=== PATIENT | female | born 1935 | race Caucasian/White ===

== ENCOUNTER → 2016-07-11 | Outpatient (CLI) | payer MEDICARE, OTHER ==
[2016-07-11 12:18] LABS: CHLORIDE,CL 102 mmol/L (98-110); SODIUM,NA 141 mmol/L (136-146)
== END ==
LOC: MW.CHFP 11:27
PROVIDERS: ATTEND Student in an Organized Health Care Education/Training Program
DX: Z01.818 Encounter for other preprocedural examination (principal); I10 Essential (primary) hypertension; Z23 Encounter for immunization
CPT/HCPCS: 36415; 80048; 85025; 90670; G0009; G0463

== ENCOUNTER 2020-12-13 16:09 | Observation (INO) | payer MEDICARE, OTHER ==
--- NOTE | 2020-12-13 17:23 | PCM.EKG ---
#1 Interpretation Time: 17:22 EKG Interpretation Comments: ST depression V1 and V2. Q-wave in lead III. Nonspecific ST/T findings.
[2020-12-13] MEDS ORDERED: Ondansetron 4 MG/2 ML SDV IVPUSH ONE ×2 (17:36→19:35)
--- NOTE | 2020-12-13 17:56 | EDM.PDOC ---
<Arnold Sears - Last Filed: 12/14/20 06:51> ED HPI GENERAL MEDICAL PROBLEM - General Chief Complaint: Cardiovascular Problem Stated Complaint: DIZZINESS, VOMITTING Time Seen by Provider: 12/13/20 16:58 - History of Present Illness INITIAL COMMENTS - FREE TEXT/NARRATIVE: 8:26 PM: Signout received at [address] Atkinson. This is an 84-year-old female who has had a Covid immunizations who presents ER today initially secondary to vertigo and dizziness that started approximately 24 hours ago. Upon arrival in the ED she was also noted to have a slight droop of her left eyelid that the family is unsure of this is baseline or new. She has no other complaints of focal weakness to her upper or lower extremities, double vision, slurred speech, gait instability. Patient denies any recent fevers, shakes, chills. Patient has had nausea and vomiting x1 in the ED. Patient denies any diarrhea. Patient did have episodes of feeling cold in the ER so a temperature was repeated at around 7:30 PM and patient was noted to have a temperature of 100.5 orally with tachycardia and was noted to be hypotensive with a blood pressure of 90/60 with a MAP of 67, pulse ox dropped to 88%. Patient was placed on 2 L of O2 by nasal cannula with significant improvement of her pulse ox to 99%. Patient was given 1 L of NSS and after approximately 200 cc, her blood pressure is currently 135/70. Patient has been given acetaminophen secondary to her fever and tachycardia of 110. Patient was initially called as a stroke alert secondary symptoms but given the current findings I feel that the findings are more likely secondary to infectious source. Blood cultures have been obtained as well as lactic acid level and patient was started on Rocephin secondary to UA that showed what appears to be a UTI. Patient will be admitted to the hospital for further monitoring. Patient had a Covid test that was negative here in the ED. Patient has CT of her head including a CTA of her head and neck which were all unremarkable for any acute pathology. Patient is currently alert awake and oriented x3 talkative and appropriate. Patient has no focal neurological exam at this time. - Related Data Allergies Allergy/AdvReac Type Severity Reaction Status Date / Time codeine Allergy Cannot Verified 12/14/20 00:41 Remember Home Meds: Home Meds Latanoprost/Pf [Latanoprost 0.005% Eye Drop] 1 drop EYEBOTH BEDTIME 12/13/20 [History] Levothyroxine Sodium [Levoxyl] 75 mcg PO DAILY 12/14/20 [History] Losartan/Hydrochlorothiazide [Losartan-HCTZ 100-25 MG] 1 tab PO DAILY 12/14/20 [History] Metoprolol Succinate 50 mg PO DAILY 12/14/20 [History] atorvaSTATin [Lipitor] 20 mg PO BEDTIME 12/14/20 [History] ED ROS GENERAL - Review of Systems Review Of Systems: See Below ED EXAM, GENERAL - Physical Exam Exam: See Below Departure - Departure Time of Disposition: 20:00 Disposition: Refer to Observation Clinical Impression: Dizziness, UTI (urinary tract infection), Sepsis - Discharge Information <David Atkinson - Last Filed: 12/14/20 07:44> ED HPI GENERAL MEDICAL PROBLEM - History of Present Illness INITIAL COMMENTS - FREE TEXT/NARRATIVE: 84-year-old female presents to the emergency department complaining of dizziness and off balance and spinning. This started about 23 hours prior to arrival. Patient denies any headache. No numbness weakness in her arms or legs. Patient does state that last night she had some chills. No cough or productive sputum or Covid contacts. Several days ago patient had some dysuria but this is since resolved. Moderate symptoms worse with head moving. Past Medical History Cardiovascular History: Reports: Hypertension Endocrine/Metabolic History: Reports: Hypothyroidism Oncologic (Cancer) History: Reports: Breast - Past Surgical History GI Surgical History: Reports: Cholecystectomy Female Surgical History: Reports: Tubal Ligation Musculoskeletal Surgical History: Reports: Knee Replacement Other Musculoskeletal Surgeries/Procedures:: left knee Oncologic Surgical History: Reports: Mastectomy Social & Family History - Family History Family Medical History: No Pertinent Family History - Tobacco Use Tobacco Use Status *Q: Never Tobacco User - Recreational Drug Use Recreational Drug Use: No ED ROS GENERAL - Review of Systems Review Of Systems: Comprehensive ROS is negative, except as noted in HPI. ED EXAM, GENERAL - Physical Exam Free Text/Narrative:: CONSTITUTIONAL: well appearing in no acute distress SKIN: Warm, dry, and intact without rash HENT: Normocephalic, atraumatic, PULMONARY: clear to ausculation bilaterally. No rales, rhonchi, wheezing CARDIOVASCULAR: regular rate, No murmur, rubs, or gallops GASTROINTESTINAL: soft, nondistended, nontender NEUROLOGIC: normal speech. light touch/5/5 power equal and symmetric in upper and lower extremities without deficit. Mild right-sided horizontal fast beating nystagmus. Intermittent left eyelid droop MUSCULOSKELETAL: no gross deformities, atraumatic PSYCHIATRIC: normal mood and affect Course - Vital Signs Text/Narrative:: Differential diagnosis: CVA, peripheral vertigo, infectious pathology, other Patient presents as outlined above. Laboratory testing management and evaluation pending. TIMMY Sears 7pm Last Recorded V/S: Last Vital Signs Temp 37.0 C 12/14/20 06:40 Pulse 86 12/14/20 06:40 Resp 16 12/14/20 06:40 BP 123/45 L 12/14/20 06:40 Pulse Ox 93 L 12/14/20 06:40 - Orders/Labs/Meds Orders: Active Orders 24 hr Category Date Time Status CULTURE BLOOD [BC] Stat Lab 12/13/20 19:42 Received CULTURE BLOOD [BC] Stat Lab 12/13/20 19:53 Received CULTURE URINE [MREF] Stat Lab 12/13/20 19:31 Received Blood Culture x2 Reflex Set [OM.PC] Stat Oth 12/13/20 19:23 Ordered Peripheral IV Insertion Adult [OM.PC] Stat Oth 12/13/20 17:34 Ordered Medication Orders Acetaminophen (Acetaminophen 325 Mg Tab) 650 mg PO Q4H PRN PRN Reason: Pain (Mild 1-3)/fever Albuterol/Ipratropium (Albuterol/Ipratropium 3.0-0.5 Mg/3 Ml Neb Soln) 3 ml NEB Q4HRRT PRN PRN Reason: Shortness Of Breath/wheezing Aspirin (Aspirin 81 Mg Tab.Chew) 81 mg PO DAILY EVITA Last Admin: 12/14/20 00:22 Dose: 81 mg Documented by: RUDY Atorvastatin Calcium (Atorvastatin 20 Mg Tab) 20 mg PO DAILY EVITA Pantoprazole Sodium 40 mg/ (Sodium Chloride) 10 mls @ 300 mls/hr IV DAILY [facility] Ceftriaxone Sodium/Dextrose 1 (gm/ Premix) 50 mls @ 100 mls/hr IV Q24H [facility] Levothyroxine Sodium (Levothyroxine 75 Mcg Tab) 75 mcg PO ACBREAKFAST [facility] Ondansetron HCl (Ondansetron 4 Mg/2 Ml Sdv) 4 mg IVPUSH Q4H PRN PRN Reason: Nausea/Vomiting Latanoprost 0.005% (Eye Drop) 1 each EYEBOTH BEDTIME EVITA Labs: Laboratory Tests 12/13/20 12/13/20 12/13/20 Range/Units 17:46 17:46 17:46 WBC 10.26 (4.0-11.0) K/uL RBC 3.93 L (4.30-5.90) M/uL Hgb 11.9 L (12.0-16.0) g/dL Hct 34.9 L (36.0-46.0) % MCV 88.8 (80.0-98.0) fL MCH 30.3 (27.0-32.0) pg MCHC 34.1 (31.0-37.0) g/dL RDW Std Deviation 44.5 (28.0-62.0) fl RDW Coeff of [place] 14 (11.0-15.0) % Plt Count 194 (150-400) K/uL MPV 9.00 (7.40-12.00) fL Neut % (Auto) 85.6 H (48.0-80.0) % Lymph % (Auto) 5.7 L (16.0-40.0) % [place] % (Auto) 8.6 (0.0-15.0) % Eos % (Auto) 0.0 (0.0-7.0) % Baso % (Auto) 0.1 (0.0-1.5) % Neut # (Auto) 8.8 H (1.4-5.7) K/uL Lymph # (Auto) 0.6 (0.6-2.4) K/uL [place] # (Auto) 0.9 H (0.0-0.8) K/uL Eos # (Auto) 0.0 (0.0-0.7) K/uL Baso # (Auto) 0.0 (0.0-0.1) K/uL Nucleated RBC % 0.0 /100WBC Nucleated RBCs # 0 K/uL INR Sodium 136 (136-145) mmol/L Potassium 3.6 (3.5-5.1) mmol/L Chloride 98 (98-107) mmol/L Carbon Dioxide 30.3 (21.0-32.0) mmol/L BUN 19 H (7.0-18.0) mg/dL Creatinine 1.0 (0.6-1.0) mg/dL Est Cr Clr Drug Dosing 37.01 mL/min Estimated GFR (MDRD) 52.7 ml/min Glucose 134 H (74-106) mg/dL POC Glucose (70-99) mg/dL Lactic Acid (0.4-2.0) mmol/L Calcium 9.0 (8.5-10.1) mg/dL Total Bilirubin 1.3 H (0.2-1.0) mg/dL AST 23 (15-37) IU/L ALT 30 (14-63) IU/L Alkaline Phosphatase 62 (46-116) U/L Troponin I < 0.050 (0.000-0.056) ng/mL Total Protein 6.9 (6.4-8.2) g/dL Albumin 3.4 (3.4-5.0) g/dL Globulin 3.5 (2.6-4.0) g/dL Albumin/Globulin Ratio 1.0 (0.9-1.6) Lipase 40 L (73-393) U/L TSH, Ultra Sensitive 0.52 (0.36-3.74) uIU/mL Urine Color Urine Appearance Urine pH (5.0-8.0) Ur Specific [place] (1.001-1.035) Urine Protein (NEGATIVE) mg/dL Urine Glucose (UA) (NEGATIVE) mg/dL Urine Ketones (NEGATIVE) mg/dL Urine Occult Blood (NEGATIVE) Urine Nitrite (NEGATIVE) Urine Bilirubin (NEGATIVE) Urine Urobilinogen (<2.0) EU/dL Ur Leukocyte Esterase (NEGATIVE) Urine RBC (0-2/HPF) Urine WBC (0-5/HPF) Ur Epithelial Cells (NONE-FEW) Urine Bacteria (NEGATIVE) Urine Mucus (NONE-MOD) SARS-CoV-2 RNA (ROMMEL) (NEGATIVE) 12/13/20 12/13/20 12/13/20 Range/Units 17:46 17:47 19:16 WBC (4.0-11.0) K/uL RBC (4.30-5.90) M/uL Hgb (12.0-16.0) g/dL Hct (36.0-46.0) % MCV (80.0-98.0) fL MCH (27.0-32.0) pg MCHC (31.0-37.0) g/dL RDW Std Deviation (28.0-62.0) fl RDW Coeff of [place] (11.0-15.0) % Plt Count (150-400) K/uL MPV (7.40-12.00) fL Neut % (Auto) (48.0-80.0) % Lymph % (Auto) (16.0-40.0) % [place] % (Auto) (0.0-15.0) % Eos % (Auto) (0.0-7.0) % Baso % (Auto) (0.0-1.5) % Neut # (Auto) (1.4-5.7) K/uL Lymph # (Auto) (0.6-2.4) K/uL [place] # (Auto) (0.0-0.8) K/uL Eos # (Auto) (0.0-0.7) K/uL Baso # (Auto) (0.0-0.1) K/uL Nucleated RBC % /100WBC Nucleated RBCs # K/uL INR 1.19 Sodium (136-145) mmol/L Potassium (3.5-5.1) mmol/L Chloride (98-107) mmol/L Carbon Dioxide (21.0-32.0) mmol/L BUN (7.0-18.0) mg/dL Creatinine (0.6-1.0) mg/dL Est Cr Clr Drug Dosing mL/min Estimated GFR (MDRD) ml/min Glucose (74-106) mg/dL POC Glucose 135 H (70-99) mg/dL Lactic Acid (0.4-2.0) mmol/L Calcium (8.5-10.1) mg/dL Total Bilirubin (0.2-1.0) mg/dL AST (15-37) IU/L ALT (14-63) IU/L Alkaline Phosphatase (46-116) U/L Troponin I (0.000-0.056) ng/mL Total Protein (6.4-8.2) g/dL Albumin (3.4-5.0) g/dL Globulin (2.6-4.0) g/dL Albumin/Globulin Ratio (0.9-1.6) Lipase (73-393) U/L TSH, Ultra Sensitive (0.36-3.74) uIU/mL Urine Color Urine Appearance Urine pH (5.0-8.0) Ur Specific [place] (1.001-1.035) Urine Protein (NEGATIVE) mg/dL Urine Glucose (UA) (NEGATIVE) mg/dL Urine Ketones (NEGATIVE) mg/dL Urine Occult Blood (NEGATIVE) Urine Nitrite (NEGATIVE) Urine Bilirubin (NEGATIVE) Urine Urobilinogen (<2.0) EU/dL Ur Leukocyte Esterase (NEGATIVE) Urine RBC (0-2/HPF) Urine WBC (0-5/HPF) Ur Epithelial Cells (NONE-FEW) Urine Bacteria (NEGATIVE) Urine Mucus (NONE-MOD) SARS-CoV-2 RNA (ROMMEL) NEGATIVE (NEGATIVE) 12/13/20 12/13/20 12/13/20 Range/Units 19:31 19:42 20:52 WBC (4.0-11.0) K/uL RBC (4.30-5.90) M/uL Hgb (12.0-16.0) g/dL Hct (36.0-46.0) % MCV (80.0-98.0) fL MCH (27.0-32.0) pg MCHC (31.0-37.0) g/dL RDW Std Deviation (28.0-62.0) fl RDW Coeff of [place] (11.0-15.0) % Plt Count (150-400) K/uL MPV (7.40-12.00) fL Neut % (Auto) (48.0-80.0) % Lymph % (Auto) (16.0-40.0) % [place] % (Auto) (0.0-15.0) % Eos % (Auto) (0.0-7.0) % Baso % (Auto) (0.0-1.5) % Neut # (Auto) (1.4-5.7) K/uL Lymph # (Auto) (0.6-2.4) K/uL [place] # (Auto) (0.0-0.8) K/uL Eos # (Auto) (0.0-0.7) K/uL Baso # (Auto) (0.0-0.1) K/uL Nucleated RBC % /100WBC Nucleated RBCs # K/uL INR Sodium (136-145) mmol/L Potassium (3.5-5.1) mmol/L Chloride (98-107) mmol/L Carbon Dioxide (21.0-32.0) mmol/L BUN (7.0-18.0) mg/dL Creatinine (0.6-1.0) mg/dL Est Cr Clr Drug Dosing mL/min Estimated GFR (MDRD) ml/min Glucose (74-106) mg/dL POC Glucose (70-99) mg/dL Lactic Acid 2.5 H* (0.4-2.0) mmol/L Calcium (8.5-10.1) mg/dL Total Bilirubin (0.2-1.0) mg/dL AST (15-37) IU/L ALT (14-63) IU/L Alkaline Phosphatase (46-116) U/L Troponin I < 0.050 (0.000-0.056) ng/mL Total Protein (6.4-8.2) g/dL Albumin (3.4-5.0) g/dL Globulin (2.6-4.0) g/dL Albumin/Globulin Ratio (0.9-1.6) Lipase (73-393) U/L TSH, Ultra Sensitive (0.36-3.74) uIU/mL Urine Color YELLOW Urine Appearance SLT CLOUDY Urine pH 6.0 (5.0-8.0) Ur Specific [place] <= 1.005 (1.001-1.035) Urine Protein TRACE H (NEGATIVE) mg/dL Urine Glucose (UA) NEGATIVE (NEGATIVE) mg/dL Urine Ketones NEGATIVE (NEGATIVE) mg/dL Urine Occult Blood TRACE-INTACT H (NEGATIVE) Urine Nitrite POSITIVE H (NEGATIVE) Urine Bilirubin NEGATIVE (NEGATIVE) Urine Urobilinogen 0.2 (<2.0) EU/dL Ur Leukocyte Esterase TRACE H (NEGATIVE) Urine RBC 1-3 (0-2/HPF) Urine WBC 4-6 (0-5/HPF) Ur Epithelial Cells FEW (NONE-FEW) Urine Bacteria 1+ H (NEGATIVE) Urine Mucus LIGHT (NONE-MOD) SARS-CoV-2 RNA (ROMMEL) (NEGATIVE) Meds: Medications Generic Name Dose Route Start Last Admin Trade Name Freq PRN Reason Stop Dose Admin Acetaminophen 650 mg 12/13/20 22:23 Acetaminophen 325 Mg Tab PO Q4H PRN Pain (Mild 1-3)/fever Albuterol/Ipratropium 3 ml 12/13/20 22:23 Albuterol/Ipratropium 3.0-0.5 Mg/3 Ml Neb Soln NEB Q4HRRT PRN Shortness Of Breath/wheezing Aspirin 81 mg 12/13/20 23:45 12/14/20 00:22 Aspirin 81 Mg Tab.Chew PO 81 mg DAILY EVITA Administration Atorvastatin Calcium 20 mg 12/14/20 09:00 Atorvastatin 20 Mg Tab PO DAILY [facility]ITA Pantoprazole Sodium 40 mg/ 10 mls @ 300 mls/hr 12/14/20 09:00 Sodium Chloride IV DAILY [facility] Ceftriaxone Sodium/Dextrose 1 50 mls @ 100 mls/hr 12/14/20 09:00 gm/ Premix IV Q24H [facility] Levothyroxine Sodium 75 mcg 12/14/20 07:45 Levothyroxine 75 Mcg Tab PO ACBREAKFAST [facility] Ondansetron HCl 4 mg 12/13/20 22:23 Ondansetron 4 Mg/2 Ml Sdv IVPUSH Q4H PRN Nausea/Vomiting Latanoprost 0.005% 1 each 12/14/20 21:00 Eye Drop EYEBOTH BEDTIME EVITA Discontinued Medications Generic Name Dose Route Start Last Admin Trade Name Freq PRN Reason Stop Dose Admin Acetaminophen 1,000 mg 12/13/20 19:14 12/13/20 19:23 Acetaminophen 500 Mg Tab PO 12/13/20 19:15 1,000 mg ONETIME ONE Administration Sodium Chloride 1,000 mls @ 999 mls/hr 12/13/20 19:21 12/13/20 19:26 Normal Saline IV 12/13/20 20:21 999 mls/hr STAT ONE Administration Sodium Chloride 1,000 mls @ 999 mls/hr 12/13/20 19:22 12/13/20 21:46 Normal Saline IV 12/13/20 20:22 999 mls/hr .Bolus ONE Administration Ceftriaxone Sodium/Dextrose 1 50 mls @ 100 mls/hr 12/13/20 20:00 12/13/20 21:45 gm/ Premix IV 12/13/20 20:29 100 mls/hr ONETIME ONE Administration Lactated Ringer's 1,000 mls @ 125 mls/hr 12/13/20 22:23 12/14/20 00:20 Ringers, Lactated IV 12/14/20 06:22 125 mls/hr ONETIME ONE Administration Iopamidol 100 ml 12/13/20 18:25 12/13/20 18:25 Iopamidol 755 Mg/Ml 500 Ml Multipack Bottle IVPUSH 12/13/20 18:26 100 ml ONETIME STA Administration Ondansetron HCl 4 mg 12/13/20 17:36 12/13/20 17:49 Ondansetron 4 Mg/2 Ml Sdv IVPUSH 12/13/20 17:37 4 mg ONETIME ONE Administration Ondansetron HCl 4 mg 12/13/20 19:35 12/13/20 19:38 Ondansetron 4 Mg/2 Ml Sdv IVPUSH 12/13/20 19:36 4 mg ONETIME ONE Administration Ondansetron HCl Confirm 12/13/20 19:35 12/13/20 19:46 Ondansetron 4 Mg/2 Ml Sdv Administered 12/13/20 19:36 Not Given Dose 4 mg .ROUTE .STK-MED ONE Sepsis Event Note (ED) - Evaluation Sepsis Screening Result: No Definite Risk
[2020-12-13 18:14] LABS: BLOOD UREA NITROGEN,BUN 19 mg/dL (7.0-18.0); CARBON DIOXIDE,CO2 30.3 mmol/L (21.0-32.0); CHLORIDE,CL 98 mmol/L (98-107); GLUCOSE RANDOM 134 mg/dL (74-106); LIPASE 40 U/L (73-393); POTASSIUM,K 3.6 mmol/L (3.5-5.1); SODIUM,NA 136 mmol/L (136-145)
[2020-12-13] MEDS ORDERED: Iopamidol 755 MG/ML 500 ML Multipack Bottle IVPUSH STA (18:25)
--- NOTE | 2020-12-13 18:38 | CT ---
INDICATION: vertigo, left lower eyelid droop TECHNIQUE: CT Head without i.v. contrast. Coronal and sagittal reformats were obtained. COMPARISON: None FINDINGS: CSF space: Unremarkable for age. Brain: No evidence of mass, acute infarction or hemorrhage is seen. No mass-effect or midline shift is seen. Mild diffuse cortical atrophy is noted. Moderate patchy regions of low attenuation are present in the periventricular white matter, likely due to chronic microvascular ischemic changes. The brain parenchyma is otherwise normal in appearance with preservation of the granda-white matter junction. Calvarium: The visualized paranasal sinuses are well aerated. The mastoid air cells are clear. The visualized orbits are grossly unremarkable. The patient is status post prior bilateral cataract removal. The calvarium is unremarkable in appearance with no fractures identified. IMPRESSION: 1. No evidence of acute infarction, intracranial hemorrhage, or mass-effect seen. The findings were discussed with Dr. Jarrett at 6:36 PM. Please note that all CT scans at this facility use dose modulation, iterative reconstruction, and/or weight-based dosing when appropriate to reduce radiation dose to as low as reasonably achievable. Dictated by: Deondre Bullock MD @ 12/13/2020 18:36:18 (Electronically Signed)
--- NOTE | 2020-12-13 18:47 | CR ---
INDICATION: Left lower eyelid droop and vertigo TECHNIQUE: Chest radiograph 1 view COMPARISON: 09/01/2017 FINDINGS: Mediastinum: Portions of the mediastinum and right cardiac border are obscured by multiple metallic brassiere clips. The mediastinum is normal in appearance. The heart silhouette is normal in size and morphology. Lung: Small lung volumes are present with mild bibasilar subsegmental atelectasis and vascular crowding noted. No sign of pleural effusion seen. No pneumothorax is identified. Bone and Soft tissue: Bilateral suture anchors seen within the humeral heads. IMPRESSION: 1. Small lung volumes are present with mild bibasilar subsegmental atelectasis and vascular crowding noted. Dictated by Deondre Bullock MD @ 12/13/2020 6:46:04 PM Dictated by: Deondre Bullock MD @ 12/13/2020 18:46:09 (Electronically Signed)
--- NOTE | 2020-12-13 19:10 | CT ---
DATE: 12/13/2020 CLINICAL HISTORY: Patient with focal neurological deficits. TECHNIQUE: Standard helical CT image acquisition through the head and neck was performed after intravenous contrast bolus enhancement. Multiplanar reconstructed images were performed and interpreted. COMPARISON: CT same day FINDINGS: The origins of the great vessels from the aortic arch are patent. The origin of the right vertebral artery is patent. The origin of the left vertebral artery is patent. The common carotid arteries are patent There is a severe (70%) stenosis at the origin of the right internal carotid artery by NASCET criteria. This is caused by calcified plaque with a 1.5mm residual lumen. There is a mild (<50%) stenosis at the origin of the left internal carotid artery by NASCET criteria. This is caused by calcified plaque with a <2mm residual lumen. The rest of the cervical segments of the internal carotid arteries are patent up to their intracranial segments. The intracranial segments of the internal carotid arteries are patent. The left vertebral artery is dominant. The cervical segments of the vertebral arteries are patent. The intracranial segments of the vertebral arteries demonstrate mild intracranial atherosclerosis. The middle cerebral arteries are normal without aneurysm or proximal occlusion identified. The anterior cerebral arteries are normal without aneurysm or proximal occlusion identified. The anterior communicating artery is well visualized and appears normal. The basilar artery is normal without aneurysm or occlusion. The posterior cerebral arteries are normal without aneurysm or proximal occlusion. There is normal opacification of major intracranial venous structures. The visualized lung apices are unremarkable The thyroid gland is unremarkable. The soft tissues of the neck are unremarkable. There are degenerative changes in the cervical spine. IMPRESSION: 1. No proximal intracranial large vessel occlusion. 2. Severe (70%) stenosis at the origin of the right internal carotid artery by NASCET criteria caused by calcified plaque with a 1.5mm residual lumen. 3. Mild (<50%) stenosis at the origin of the left internal carotid artery by NASCET criteria caused by calcified plaque with a <2mm residual lumen. Please note that all CT scans at this facility use dose modulation, iterative reconstruction, and/or weight-based dosing when appropriate to reduce radiation dose to as low as reasonably achievable. Dictated by Leatha Crawford MD @ 12/13/2020 11:20:[address] Leatha Crawford @ Dec 13 2020 11:20PM
[2020-12-13] MEDS ORDERED: Acetaminophen 500 MG Tab PO ONE (19:14)
--- NOTE | 2020-12-13 19:20 | EDM.PDOC ---
ED HPI GENERAL MEDICAL PROBLEM - General Chief Complaint: Cardiovascular Problem Stated Complaint: DIZZINESS, VOMITTING Time Seen by Provider: 12/13/20 16:58 Source of Information: Reports: Patient History Limitations: Reports: No Limitations - History of Present Illness INITIAL COMMENTS - FREE TEXT/NARRATIVE: HISTORY AND PHYSICAL: History of present illness: Patient is an 84-year-old female who presents emergency room today with concern of dizziness/vertigo that has been making her unable to ambulate since 7 AM. Patient states that she has fallen 3 times today but has not hit her head or loss of consciousness and denies any pain. Patient states prior to this morning, she has been able to get around without any difficulty on her own. Patient states that when she goes to sit up or stand up, she feels so dizzy and like she is falling over and off balance still cannot walk. Patient states the dizziness has made her nauseous and vomit a few times today. Patient states she came to the emergency room today in a wheelchair. Patient states that she was cold last night but denies any fever. Patient states that she did have chills last night but did not think much of it today. Patient denies any other symptoms or concerns. Patient denies fever, chest pain, shortness of breath, or cough. Denies headache, neck stiff ness, change in vision, syncope, or near syncope. Denies abdominal pain, diarrhea, constipation, or dysuria. Has not noted any blood in urine or stool. Patient has been eating and drinking appropriately. Review of systems: As per history of present illness and below otherwise all systems reviewed and negative. Past medical history: As per history of present illness and as reviewed below otherwise noncontributory. Surgical history: As per history of present illness and as reviewed below otherwise noncontributory. Social history: See social history for further information Family history: As per history of present illness and as reviewed below otherwise noncontributory. Physical exam: General: Patient is alert, oriented, and in no acute distress. Patient laying comfortably on exam table. Vitals stable and reviewed by me. HEENT: Atraumatic, normocephalic, pupils equal and reactive bilaterally, negative for conjunctival pallor or scleral icterus, mucous membranes moist, TMs normal bilaterally, throat clear, neck supple, nontender, trachea midline. No drooling or trismus noted. No meningeal signs. No hot potato voice noted. Lungs: Clear to auscultation, breath sounds equal bilaterally, chest nontender. Heart: S1S2, regular rate and rhythm without overt murmur Abdomen: Soft, nondistended, nontender. Negative for masses or hepatosplenomegaly. Negative for costovertebral tenderness. Pelvis: Stable nontender. Genitourinary: Deferred. Rectal: Deferred. Skin: Intact, warm, dry. No lesions or rashes noted. Extremities: Atraumatic, negative for cords or calf pain. Neurovascular unremarkable. Neuro: Awake, alert, oriented. There is a mild lid lag of the left eyelid. 5 out of 5 strength of bilateral upper and lower extremities. When asked to sit on the side of the bed, patient does become dizzy and requires assistance to sit up. Patient is unable to stand without assistance without getting dizzy and starting to fall over. Notes: Patient is an 84-year-old female who presents emergency room today with concern of dizziness since 7 AM making it difficult to ambulate with 3 falls occurring today. Upon arrival to the ED, patient is vitally stable and well-appearing laying comfortably on exam table. However, when asked to sit up on the edge of the bed or get up and stand, patient is unable to do this without dizziness and falling over and requiring assistance to prevent falls. Given patient's presentation in the emergency room, stroke protocol initiated. Patient was initially triaged to the waiting room. Due to stroke protocol initiated, transfer of care made to Dr. Atkinson. See his further dictation for patient treatment and disposition. Diagnostics: EKG, CBC, CMP, UA, CXR, Trop, TSH, Head CT w/o cont Therapeutics: Zofran, Saline Lock Prescription: Impression: Dizziness Plan: Transfer of care to Dr. Atkinson due to stroke protocol Definitive disposition and diagnosis as appropriate pending reevaluation and review of above. - Related Data Allergies Allergy/AdvReac Type Severity Reaction Status Date / Time codeine Allergy Cannot Verified 12/13/20 17:04 Remember Home Meds: Home Meds Hydrochlorothiazide/Losartan [Hyzaar 100-25 MG] tab PO DAILY 12/13/20 [History] Latanoprost/Pf [Latanoprost 0.005% Eye Drop] 1 drop EYEBOTH BEDTIME 12/13/20 [History] Levothyroxine [Synthroid] 1 tab PO DAILY 12/13/20 [History] Metoprolol Tartrate 1 tab PO DAILY 12/13/20 [History] atorvaSTATin Calcium [Lipitor] 20 mg PO DAILY 12/13/20 [History] Past Medical History Cardiovascular History: Reports: Hypertension Endocrine/Metabolic History: Reports: Hypothyroidism Oncologic (Cancer) History: Reports: Breast - Past Surgical History GI Surgical History: Reports: Cholecystectomy Female Surgical History: Reports: Tubal Ligation Musculoskeletal Surgical History: Reports: Knee Replacement Other Musculoskeletal Surgeries/Procedures:: left knee Oncologic Surgical History: Reports: Mastectomy Social & Family History - Family History Family Medical History: No Pertinent Family History - Tobacco Use Tobacco Use Status *Q: Never Tobacco User - Recreational Drug Use Recreational Drug Use: No ED ROS GENERAL - Review of Systems Review Of Systems: Comprehensive ROS is negative, except as noted in HPI. ED EXAM, GENERAL - Physical Exam Exam: See Below (see dictation) Free Text/Narrative:: CONSTITUTIONAL: well appearing in no acute distress SKIN: Warm, dry, and intact without rash HENT: Normocephalic, atraumatic, PULMONARY: clear to ausculation bilaterally. No rales, rhonchi, wheezing CARDIOVASCULAR: regular rate, No murmur, rubs, or gallops GASTROINTESTINAL: soft, nondistended, nontender NEUROLOGIC: normal speech. light touch/5/5 power equal and symmetric in upper and lower extremities without deficit. Mild right-sided horizontal fast beating nystagmus. Intermittent left eyelid droop MUSCULOSKELETAL: no gross deformities, atraumatic PSYCHIATRIC: normal mood and affect Course - Vital Signs Last Recorded V/S: Last Vital Signs Temp 100.5 F 12/13/20 19:12 Pulse 119 H 12/13/20 19:12 Resp 17 12/13/20 19:12 BP 95/56 L 12/13/20 19:12 Pulse Ox 82 L 12/13/20 19:12 - Orders/Labs/Meds Orders: Active Orders 24 hr Category Date Time Status CORONAVIRUS COVID-19 ROMMEL [MOLEC] Stat Lab 12/13/20 17:50 Ordered UA RFX ELSA AND CULT IF INDIC [URIN] Stat Lab 12/13/20 16:58 Ordered Acetaminophen [Tylenol Extra Strength] Med 12/13/20 19:14 Once 1,000 mg PO ONETIME ONE Peripheral IV Insertion Adult [OM.PC] Stat Oth 12/13/20 17:34 Ordered Medication Orders Acetaminophen (Acetaminophen 500 Mg Tab) 1,000 mg PO ONETIME ONE Stop: 12/13/20 19:15 Labs: Laboratory Tests 12/13/20 12/13/20 12/13/20 Range/Units 17:46 17:46 17:46 WBC 10.26 (4.0-11.0) K/uL RBC 3.93 L (4.30-5.90) M/uL Hgb 11.9 L (12.0-16.0) g/dL Hct 34.9 L (36.0-46.0) % MCV 88.8 (80.0-98.0) fL MCH 30.3 (27.0-32.0) pg MCHC 34.1 (31.0-37.0) g/dL RDW Std Deviation 44.5 (28.0-62.0) fl RDW Coeff of [place]ibr[place] 14 (11.0-15.0) % Plt Count 194 (150-400) K/uL MPV 9.00 (7.40-12.00) fL Neut % (Auto) 85.6 H (48.0-80.0) % Lymph % (Auto) 5.7 L (16.0-40.0) % [place] % (Auto) 8.6 (0.0-15.0) % Eos % (Auto) 0.0 (0.0-7.0) % Baso % (Auto) 0.1 (0.0-1.5) % Neut # (Auto) 8.8 H (1.4-5.7) K/uL Lymph # (Auto) 0.6 (0.6-2.4) K/uL [place] # (Auto) 0.9 H (0.0-0.8) K/uL Eos # (Auto) 0.0 (0.0-0.7) K/uL Baso # (Auto) 0.0 (0.0-0.1) K/uL Nucleated RBC % 0.0 /100WBC Nucleated RBCs # 0 K/uL INR Sodium 136 (136-145) mmol/L Potassium 3.6 (3.5-5.1) mmol/L Chloride 98 (98-107) mmol/L Carbon Dioxide 30.3 (21.0-32.0) mmol/L BUN 19 H (7.0-18.0) mg/dL Creatinine 1.0 (0.6-1.0) mg/dL Est Cr Clr Drug Dosing 37.01 mL/min Estimated GFR (MDRD) 52.7 ml/min Glucose 134 H (74-106) mg/dL POC Glucose (70-99) mg/dL Calcium 9.0 (8.5-10.1) mg/dL Total Bilirubin 1.3 H (0.2-1.0) mg/dL AST 23 (15-37) IU/L ALT 30 (14-63) IU/L Alkaline Phosphatase 62 (46-116) U/L Troponin I < 0.050 (0.000-0.056) ng/mL Total Protein 6.9 (6.4-8.2) g/dL Albumin 3.4 (3.4-5.0) g/dL Globulin 3.5 (2.6-4.0) g/dL Albumin/Globulin Ratio 1.0 (0.9-1.6) Lipase 40 L (73-393) U/L TSH, Ultra Sensitive 0.52 (0.36-3.74) uIU/mL 12/13/20 12/13/20 Range/Units 17:46 17:47 WBC (4.0-11.0) K/uL RBC (4.30-5.90) M/uL Hgb (12.0-16.0) g/dL Hct (36.0-46.0) % MCV (80.0-98.0) fL MCH (27.0-32.0) pg MCHC (31.0-37.0) g/dL RDW Std Deviation (28.0-62.0) fl RDW Coeff of [place] (11.0-15.0) % Plt Count (150-400) K/uL MPV (7.40-12.00) fL Neut % (Auto) (48.0-80.0) % Lymph % (Auto) (16.0-40.0) % [place] % (Auto) (0.0-15.0) % Eos % (Auto) (0.0-7.0) % Baso % (Auto) (0.0-1.5) % Neut # (Auto) (1.4-5.7) K/uL Lymph # (Auto) (0.6-2.4) K/uL [place] # (Auto) (0.0-0.8) K/uL Eos # (Auto) (0.0-0.7) K/uL Baso # (Auto) (0.0-0.1) K/uL Nucleated RBC % /100WBC Nucleated RBCs # K/uL INR 1.19 Sodium (136-145) mmol/L Potassium (3.5-5.1) mmol/L Chloride (98-107) mmol/L Carbon Dioxide (21.0-32.0) mmol/L BUN (7.0-18.0) mg/dL Creatinine (0.6-1.0) mg/dL Est Cr Clr Drug Dosing mL/min Estimated GFR (MDRD) ml/min Glucose (74-106) mg/dL POC Glucose 135 H (70-99) mg/dL Calcium (8.5-10.1) mg/dL Total Bilirubin (0.2-1.0) mg/dL AST (15-37) IU/L ALT (14-63) IU/L Alkaline Phosphatase (46-116) U/L Troponin I (0.000-0.056) ng/mL Total Protein (6.4-8.2) g/dL Albumin (3.4-5.0) g/dL Globulin (2.6-4.0) g/dL Albumin/Globulin Ratio (0.9-1.6) Lipase (73-393) U/L TSH, Ultra Sensitive (0.36-3.74) uIU/mL Meds: Medications Generic Name Dose Route Start Last Admin Trade Name Freq PRN Reason Stop Dose Admin Acetaminophen 1,000 mg 12/13/20 19:14 Acetaminophen 500 Mg Tab PO 12/13/20 19:15 ONETIME ONE Discontinued Medications Generic Name Dose Route Start Last Admin Trade Name Freq PRN Reason Stop Dose Admin Iopamidol 100 ml 12/13/20 18:25 12/13/20 18:25 Iopamidol 755 Mg/Ml 500 Ml Multipack Bottle IVPUSH 12/13/20 18:26 100 ml ONETIME STA Administration Ondansetron HCl 4 mg 12/13/20 17:36 12/13/20 17:49 Ondansetron 4 Mg/2 Ml Sdv IVPUSH 12/13/20 17:37 4 mg ONETIME ONE Administration Departure - Departure Time of Disposition: 19:20 Disposition: Refer to Observation Clinical Impression: Dizziness - Discharge Information Referrals: Iliana Shen NP [Primary Care Provider] - Forms: ED Department Discharge Sepsis Event Note (ED) - Evaluation Sepsis Screening Result: No Definite Risk - Focused Exam Vital Signs: Vital Signs Temp Pulse Resp BP Pulse Ox 12/13/20 19:12 100.5 F 119 H 17 95/56 L 82 L 12/13/20 17:02 99.8 F 98 16 133/62 95 - My Orders Last 24 Hours: My Active Orders 12/13/20 16:58 UA RFX ELSA AND CULT IF INDIC [URIN] Stat 12/13/20 17:34 Peripheral IV Insertion Adult [OM.PC] Stat 12/13/20 19:14 Acetaminophen [Tylenol Extra Strength] 1,000 mg PO ONETIME ONE - Assessment/Plan Last 24 Hours: My Active Orders 12/13/20 16:58 UA RFX ELSA AND CULT IF INDIC [URIN] Stat 12/13/20 17:34 Peripheral IV Insertion Adult [OM.PC] Stat 12/13/20 19:14 Acetaminophen [Tylenol Extra Strength] 1,000 mg PO ONETIME ONE
[2020-12-13] MEDS ORDERED: Sodium Chloride 0.9% 1,000 ML IV ONE ×2 (19:21→19:22)
[2020-12-13] MEDS ORDERED: Ondansetron 4 MG/2 ML SDV ONE (19:35)
[2020-12-13] MEDS ORDERED: cefTRIAXone 1 GM in Premix Bag 1 BAG IV ONE (20:00)
[2020-12-13] MEDS ORDERED: Ondansetron 4 MG/2 ML SDV IVPUSH PRN (22:23)
[2020-12-13] MEDS ORDERED: Albuterol/Ipratropium 3.0-0.5 MG/3 ML Neb Soln NEB PRN (22:23)
[2020-12-13] MEDS ORDERED: Lactated Ringers 1,000 ML IV ONE (22:23)
--- NOTE | 2020-12-13 22:35 | PCM.HP.2 ---
H&P History of Present Illness - General Date of Service: 12/13/20 Admit Problem/Dx: Admission Diagnosis/Problem Admission Diagnosis/Problem Sepsis Source of Information: Patient, Provider History Limitations: Reports: No Limitations. Denies: Altered Mental Status, Combative/Threatening, Physical Impairment, Respiratory Distress - History of Present Illness Initial Comments - Free Text/Narative: This is an 84-year-old female who has had a Covid immunizations who presents ER today initially secondary to vertigo and dizziness that started approximately 24 hours ago, around 7 in the morning. Upon arrival in the ED she was also noted to have a slight droop of her left eyelid that the family is unsure of this is baseline or new. Patient denies any focal weakness to her upper or lower extremities, double vision, slurred speech, gait instability. Patient states that she does often feel some dizziness and off-balance when she sits up suddenly or stands up. CT of the head as well as CTA of the head and neck was done which was unremarkable for any acute finding. Patient had an episode of nausea as well as felt some chills in the ER, patient denies any diarrhea, patient's temperature rechecked again and at that time, temperature was 100.5 orally with tachycardia and was noted to be hypotensive with a blood pressure of 90/60 with a MAP of 67, pulse ox dropped to 88%. Patient was placed on 2 L of O2 by nasal cannula with significant improvement of her pulse ox to 99%. UA was positive for UTI, patient is states she has been having dysuria for 1 week, she was supposed to see her primary care doctor but states that she missed her appointment. Sepsis protocol was initiated, and patient was started on IV fluids, IV antibiotics, blood cultures and urine cultures were obtained as well. Patient was admitted to the hospital for further management. By the time I saw the patient all her symptoms have resolved including hypoxia and she states that she only feels much better. - Related Data Allergies/Adverse Reactions: Allergies Allergy/AdvReac Type Severity Reaction Status Date / Time codeine Allergy Cannot Verified 12/13/20 17:04 Remember Home Medications: Home Meds Hydrochlorothiazide/Losartan [Hyzaar 100-25 MG] tab PO DAILY 12/13/20 [History] Latanoprost/Pf [Latanoprost 0.005% Eye Drop] 1 drop EYEBOTH BEDTIME 12/13/20 [History] Levothyroxine [Synthroid] 1 tab PO DAILY 12/13/20 [History] Metoprolol Tartrate 1 tab PO DAILY 12/13/20 [History] atorvaSTATin Calcium [Lipitor] 20 mg PO DAILY 12/13/20 [History] Past Medical History Cardiovascular History: Reports: Hypertension Endocrine/Metabolic History: Reports: Hypothyroidism Oncologic (Cancer) History: Reports: Breast - Past Surgical History GI Surgical History: Reports: Cholecystectomy Female Surgical History: Reports: Tubal Ligation Musculoskeletal Surgical History: Reports: Knee Replacement Other Musculoskeletal Surgeries/Procedures:: left knee Oncologic Surgical History: Reports: Mastectomy Social & Family History - Family History Family Medical History: No Pertinent Family History - Tobacco Use Tobacco Use Status *Q: Never Tobacco User - Recreational Drug Use Recreational Drug Use: No H&P Review of Systems - Review of Systems: Review Of Systems: See Below General: Reports: Chills, Malaise, Weakness. Denies: Fever HEENT: Denies: Contact Lenses, Dysphasia Pulmonary: Denies: Shortness of Breath, Wheezing, Cough, Sputum Cardiovascular: Denies: Chest Pain, Palpitations, Dyspnea on Exertion Gastrointestinal: Denies: Abdominal Pain, Anorexia, Nausea Genitourinary: Denies: Dysuria, Frequency Musculoskeletal: Denies: Neck Pain, Shoulder Pain Skin: Denies: Cyanosis, Jaundice, Mottled Psychiatric: Denies: Confusion, Depression Neurological: Reports: Dizziness. Denies: Confusion Hematologic/Lymphatic: Denies: Anemia, Easy Bleeding Exam - Exam Exam: See Below - Vital Signs Vital Signs: Last Vital Signs Temp 38.1 C 12/13/20 19:22 Pulse 122 H 12/13/20 19:29 Resp 20 12/13/20 19:29 BP 115/63 12/13/20 19:29 Pulse Ox 93 L 12/13/20 19:29 Weight: 70.76 kg - Exam Quality Assessment: No: Supplemental Oxygen General: Alert, Oriented Neck: Supple, Trachea Midline Lungs: Clear to Auscultation, Normal Respiratory Effort Cardiovascular: Regular Rate, Regular Rhythm, Normal S1, Normal S2 GI/Abdominal Exam: Normal Bowel Sounds, Soft, Non-Tender Back Exam: Normal Inspection, Full Range of Motion Extremities: Normal Inspection, Normal Range of Motion. No: Leg Pain Skin: Warm Neurological: Cranial Nerves Intact Neuro Extensive - Mental Status: Alert, Oriented x3, Normal Mood/Affect, Normal Cognition Neuro Extensive - Motor, Sensory, Reflexes: CN II-XII Intact, Normal Gait, Normal Reflexes - Patient Data Lab Results Last 24 hrs: Laboratory Results - last 24 hr 12/13/20 12/13/20 12/13/20 Range/Units 17:46 17:46 17:46 WBC 10.26 (4.0-11.0) K/uL RBC 3.93 L (4.30-5.90) M/uL Hgb 11.9 L (12.0-16.0) g/dL Hct 34.9 L (36.0-46.0) % MCV 88.8 (80.0-98.0) fL MCH 30.3 (27.0-32.0) pg MCHC 34.1 (31.0-37.0) g/dL RDW Std Deviation 44.5 (28.0-62.0) fl RDW Coeff of [place] 14 (11.0-15.0) % Plt Count 194 (150-400) K/uL MPV 9.00 (7.40-12.00) fL Neut % (Auto) 85.6 H (48.0-80.0) % Lymph % (Auto) 5.7 L (16.0-40.0) % [place] % (Auto) 8.6 (0.0-15.0) % Eos % (Auto) 0.0 (0.0-7.0) % Baso % (Auto) 0.1 (0.0-1.5) % Neut # (Auto) 8.8 H (1.4-5.7) K/uL Lymph # (Auto) 0.6 (0.6-2.4) K/uL [place] # (Auto) 0.9 H (0.0-0.8) K/uL Eos # (Auto) 0.0 (0.0-0.7) K/uL Baso # (Auto) 0.0 (0.0-0.1) K/uL Nucleated RBC % 0.0 /100WBC Nucleated RBCs # 0 K/uL INR Sodium 136 (136-145) mmol/L Potassium 3.6 (3.5-5.1) mmol/L Chloride 98 (98-107) mmol/L Carbon Dioxide 30.3 (21.0-32.0) mmol/L BUN 19 H (7.0-18.0) mg/dL Creatinine 1.0 (0.6-1.0) mg/dL Est Cr Clr Drug Dosing 37.01 mL/min Estimated GFR (MDRD) 52.7 ml/min Glucose 134 H (74-106) mg/dL POC Glucose (70-99) mg/dL Lactic Acid (0.4-2.0) mmol/L Calcium 9.0 (8.5-10.1) mg/dL Total Bilirubin 1.3 H (0.2-1.0) mg/dL AST 23 (15-37) IU/L ALT 30 (14-63) IU/L Alkaline Phosphatase 62 (46-116) U/L Troponin I < 0.050 (0.000-0.056) ng/mL Total Protein 6.9 (6.4-8.2) g/dL Albumin 3.4 (3.4-5.0) g/dL Globulin 3.5 (2.6-4.0) g/dL Albumin/Globulin Ratio 1.0 (0.9-1.6) Lipase 40 L (73-393) U/L TSH, Ultra Sensitive 0.52 (0.36-3.74) uIU/mL Urine Color Urine Appearance Urine pH (5.0-8.0) Ur Specific [place] (1.001-1.035) Urine Protein (NEGATIVE) mg/dL Urine Glucose (UA) (NEGATIVE) mg/dL Urine Ketones (NEGATIVE) mg/dL Urine Occult Blood (NEGATIVE) Urine Nitrite (NEGATIVE) Urine Bilirubin (NEGATIVE) Urine Urobilinogen (<2.0) EU/dL Ur Leukocyte Esterase (NEGATIVE) Urine RBC (0-2/HPF) Urine WBC (0-5/HPF) Ur Epithelial Cells (NONE-FEW) Urine Bacteria (NEGATIVE) Urine Mucus (NONE-MOD) SARS-CoV-2 RNA (ROMMEL) (NEGATIVE) 12/13/20 12/13/20 12/13/20 Range/Units 17:46 17:47 19:16 WBC (4.0-11.0) K/uL RBC (4.30-5.90) M/uL Hgb (12.0-16.0) g/dL Hct (36.0-46.0) % MCV (80.0-98.0) fL MCH (27.0-32.0) pg MCHC (31.0-37.0) g/dL RDW Std Deviation (28.0-62.0) fl RDW Coeff of [place] (11.0-15.0) % Plt Count (150-400) K/uL MPV (7.40-12.00) fL Neut % (Auto) (48.0-80.0) % Lymph % (Auto) (16.0-40.0) % [place] % (Auto) (0.0-15.0) % Eos % (Auto) (0.0-7.0) % Baso % (Auto) (0.0-1.5) % Neut # (Auto) (1.4-5.7) K/uL Lymph # (Auto) (0.6-2.4) K/uL [place] # (Auto) (0.0-0.8) K/uL Eos # (Auto) (0.0-0.7) K/uL Baso # (Auto) (0.0-0.1) K/uL Nucleated RBC % /100WBC Nucleated RBCs # K/uL INR 1.19 Sodium (136-145) mmol/L Potassium (3.5-5.1) mmol/L Chloride (98-107) mmol/L Carbon Dioxide (21.0-32.0) mmol/L BUN (7.0-18.0) mg/dL Creatinine (0.6-1.0) mg/dL Est Cr Clr Drug Dosing mL/min Estimated GFR (MDRD) ml/min Glucose (74-106) mg/dL POC Glucose 135 H (70-99) mg/dL Lactic Acid (0.4-2.0) mmol/L Calcium (8.5-10.1) mg/dL Total Bilirubin (0.2-1.0) mg/dL AST (15-37) IU/L ALT (14-63) IU/L Alkaline Phosphatase (46-116) U/L Troponin I (0.000-0.056) ng/mL Total Protein (6.4-8.2) g/dL Albumin (3.4-5.0) g/dL Globulin (2.6-4.0) g/dL Albumin/Globulin Ratio (0.9-1.6) Lipase (73-393) U/L TSH, Ultra Sensitive (0.36-3.74) uIU/mL Urine Color Urine Appearance Urine pH (5.0-8.0) Ur Specific [place] (1.001-1.035) Urine Protein (NEGATIVE) mg/dL Urine Glucose (UA) (NEGATIVE) mg/dL Urine Ketones (NEGATIVE) mg/dL Urine Occult Blood (NEGATIVE) Urine Nitrite (NEGATIVE) Urine Bilirubin (NEGATIVE) Urine Urobilinogen (<2.0) EU/dL Ur Leukocyte Esterase (NEGATIVE) Urine RBC (0-2/HPF) Urine WBC (0-5/HPF) Ur Epithelial Cells (NONE-FEW) Urine Bacteria (NEGATIVE) Urine Mucus (NONE-MOD) SARS-CoV-2 RNA (ROMMEL) NEGATIVE (NEGATIVE) 12/13/20 12/13/20 12/13/20 Range/Units 19:31 19:42 20:52 WBC (4.0-11.0) K/uL RBC (4.30-5.90) M/uL Hgb (12.0-16.0) g/dL Hct (36.0-46.0) % MCV (80.0-98.0) fL MCH (27.0-32.0) pg MCHC (31.0-37.0) g/dL RDW Std Deviation (28.0-62.0) fl RDW Coeff of [place] (11.0-15.0) % Plt Count (150-400) K/uL MPV (7.40-12.00) fL Neut % (Auto) (48.0-80.0) % Lymph % (Auto) (16.0-40.0) % [place] % (Auto) (0.0-15.0) % Eos % (Auto) (0.0-7.0) % Baso % (Auto) (0.0-1.5) % Neut # (Auto) (1.4-5.7) K/uL Lymph # (Auto) (0.6-2.4) K/uL [place] # (Auto) (0.0-0.8) K/uL Eos # (Auto) (0.0-0.7) K/uL Baso # (Auto) (0.0-0.1) K/uL Nucleated RBC % /100WBC Nucleated RBCs # K/uL INR Sodium (136-145) mmol/L Potassium (3.5-5.1) mmol/L Chloride (98-107) mmol/L Carbon Dioxide (21.0-32.0) mmol/L BUN (7.0-18.0) mg/dL Creatinine (0.6-1.0) mg/dL Est Cr Clr Drug Dosing mL/min Estimated GFR (MDRD) ml/min Glucose (74-106) mg/dL POC Glucose (70-99) mg/dL Lactic Acid 2.5 H* (0.4-2.0) mmol/L Calcium (8.5-10.1) mg/dL Total Bilirubin (0.2-1.0) mg/dL AST (15-37) IU/L ALT (14-63) IU/L Alkaline Phosphatase (46-116) U/L Troponin I < 0.050 (0.000-0.056) ng/mL Total Protein (6.4-8.2) g/dL Albumin (3.4-5.0) g/dL Globulin (2.6-4.0) g/dL Albumin/Globulin Ratio (0.9-1.6) Lipase (73-393) U/L TSH, Ultra Sensitive (0.36-3.74) uIU/mL Urine Color YELLOW Urine Appearance SLT CLOUDY Urine pH 6.0 (5.0-8.0) Ur Specific [place] <= 1.005 (1.001-1.035) Urine Protein TRACE H (NEGATIVE) mg/dL Urine Glucose (UA) NEGATIVE (NEGATIVE) mg/dL Urine Ketones NEGATIVE (NEGATIVE) mg/dL Urine Occult Blood TRACE-INTACT H (NEGATIVE) Urine Nitrite POSITIVE H (NEGATIVE) Urine Bilirubin NEGATIVE (NEGATIVE) Urine Urobilinogen 0.2 (<2.0) EU/dL Ur Leukocyte Esterase TRACE H (NEGATIVE) Urine RBC 1-3 (0-2/HPF) Urine WBC 4-6 (0-5/HPF) Ur Epithelial Cells FEW (NONE-FEW) Urine Bacteria 1+ H (NEGATIVE) Urine Mucus LIGHT (NONE-MOD) SARS-CoV-2 RNA (ROMMEL) (NEGATIVE) Result Diagrams: 12/13/20 17:46 12/13/20 17:46 Sepsis Event Note - Evaluation Sepsis Screening Result: No Definite Risk - Focused Exam Vital Signs: Vital Signs Temp Pulse Resp BP Pulse Ox 12/13/20 19:29 122 H 20 115/63 93 L 12/13/20 19:22 38.1 C 12/13/20 19:12 38.1 C 119 H 17 95/56 L 82 L 12/13/20 17:02 37.7 C 98 16 133/62 95 - Problem List (1) Sepsis SNOMED Code(s): 99539085 ICD Code: A41.9 - SEPSIS, UNSPECIFIED ORGANISM Status: Acute Current Visit: Yes (2) UTI (urinary tract infection) SNOMED Code(s): 22912670 ICD Code: N39.0 - URINARY TRACT INFECTION, SITE NOT SPECIFIED Status: Acute Current Visit: Yes (3) Nausea & vomiting SNOMED Code(s): 64841198 ICD Code: R11.2 - NAUSEA WITH VOMITING, UNSPECIFIED Status: Acute Current Visit: Yes (4) Dizziness SNOMED Code(s): 675869614, 644616867 ICD Code: R42 - DIZZINESS AND GIDDINESS Status: Acute Current Visit: Yes Problem List Initiated/Reviewed/Updated: Yes Orders Last 24hrs: Active Orders 24 hr Category Date Time Status Patient Status [ADT] Routine ADT 12/13/20 21:31 Active Ambulate [RC] ASDIRECTED Care 12/13/20 22:23 Active Antiembolic Devices [RC] PER UNIT ROUTINE Care 12/13/20 22:26 Active Blood Glucose Check, Bedside [RC] BIDMEALS Care 12/13/20 22:23 Active Oxygen Therapy [RC] PRN Care 12/13/20 22:24 Active Pulse Oximetry [RC] PRN Care 12/13/20 22:24 Active RT Aerosol Therapy [RC] ASDIRECTED Care 12/13/20 22:27 Active VTE/DVT Education [RC] PER UNIT ROUTINE Care 12/13/20 22:24 Active Vital Signs [RC] Q4H Care 12/13/20 22:24 Active Consult to Physical Therapy [PT Evaluation and Cons 12/13/20 22:32 Active Treatment] [CONS] Stat Regular Diet [DIET] Diet 12/14/20 Breakfast Active BMP [BASIC METABOLIC PANEL,BMP] [CHEM] AM Lab 12/14/20 05:11 Ordered CBC WITH AUTO DIFF [HEME] AM Lab 12/14/20 05:11 Ordered CULTURE BLOOD [BC] Stat Lab 12/13/20 19:42 Received CULTURE BLOOD [BC] Stat Lab 12/13/20 19:53 Received CULTURE URINE [MREF] Stat Lab 12/13/20 19:31 Received MAGNESIUM [CHEM] AM Lab 12/14/20 05:11 Ordered PHOSPHORUS [CHEM] AM Lab 12/14/20 05:11 Ordered REFLEX LACTIC ACID YES OR NO [CHEM] Routine Lab 12/13/20 20:25 Received Acetaminophen [TylenoL] Med 12/13/20 22:23 Active 650 mg PO Q4H PRN Albuterol/Ipratropium [DuoNeb 3.0-0.5 MG/3 ML] Med 12/13/20 22:23 Active 3 ml NEB Q4HRRT PRN Lactated Ringers [Ringers, Lactated] 1,000 ml Med 12/13/20 22:23 Active IV ONETIME Latanoprost/Pf [Latanoprost 0.005% Eye Drop] Med 12/14/20 21:00 Active 1 drop EYEBOTH BEDTIME Levothyroxine [Synthroid] Med 12/14/20 09:00 Active 50 mcg PO DAILY Ondansetron [Zofran] Med 12/13/20 22:23 Active 4 mg IVPUSH Q4H PRN Pantoprazole [ProTONIX IV] 40 mg Med 12/14/20 09:00 Active Sodium Chloride 0.9% [Normal Saline] 10 ml IV DAILY atorvaSTATin [Lipitor] Med 12/14/20 09:00 Active 20 mg PO DAILY cefTRIAXone [Rocephin in Dextrose,Iso-Osm 1 GM/50 ML] 1 Med 12/14/20 09:00 Active gm Premix Bag 1 bag IV Q24H Blood Culture x2 Reflex Set [OM.PC] Stat Oth 12/13/20 19:23 Ordered Peripheral IV Insertion Adult [OM.PC] Stat Oth 12/13/20 17:34 Ordered Sequential Compression Device [OM.PC] Per Unit Routine Oth 12/13/20 22:24 Ordered Medication Orders Acetaminophen (Acetaminophen 325 Mg Tab) 650 mg PO Q4H PRN PRN Reason: Pain (Mild 1-3)/fever Albuterol/Ipratropium (Albuterol/Ipratropium 3.0-0.5 Mg/3 Ml Neb Soln) 3 ml NEB Q4HRRT PRN PRN Reason: Shortness Of Breath/wheezing Atorvastatin Calcium (Atorvastatin 20 Mg Tab) 20 mg PO DAILY EVITA Lactated Ringer's (Ringers, Lactated) 1,000 mls @ 125 mls/hr IV ONETIME ONE Stop: 12/14/20 06:22 Pantoprazole Sodium 40 mg/ (Sodium Chloride) 10 mls @ 300 mls/hr IV DAILY EVITA Ceftriaxone Sodium/Dextrose 1 (gm/ Premix) 50 mls @ 100 mls/hr IV Q24H EVITA Levothyroxine Sodium (Levothyroxine 50 Mcg Tab) 50 mcg PO DAILY EVITA Non-Formulary Medication (Latanoprost/Pf [Latanoprost 0.005% Eye Drop]) 1 drop EYEBOTH BEDTIME EVITA Ondansetron HCl (Ondansetron 4 Mg/2 Ml Sdv) 4 mg IVPUSH Q4H PRN PRN Reason: Nausea/Vomiting Assessment/Plan Comment:: 84-year-old female admitted for sepsis likely secondary to UTI, no other evident source of infection Sepsis resolved, but patient continues to have soft blood pressure in the 100s sbp, will hold off on all antihypertensives for now Continue IV Rocephin Continue IV fluids, bolus as needed Follow-up on urine cultures and blood cultures Currently off nasal cannula saturating at 92% on room air Continue oxygen as needed Pulse ox as needed Vitals every 4 hours DuoNebs as needed for shortness of breath IV Zofran for nausea and vomiting Administer 1 dose of aspirin 81 mg tonight Resume home meds as appropriate No focal neurological deficit noted on exam, will hold off on MRI for now unless patient's clinical condition changes Patient will need to be assessed by physical therapy for safe ambulation
[2020-12-14] MEDS: Aspirin 81 MG Tab.Chew PO SCH ×2 (00:22→08:16)
[2020-12-14 06:52] LABS: CARBON DIOXIDE,CO2 28.6 mmol/L (21.0-32.0); POTASSIUM,K 3.6 mmol/L (3.5-5.1)
[2020-12-14] MEDS: Levothyroxine 75 MCG Tab PO SCH (08:17)
[2020-12-14] MEDS: atorvaSTATin 20 MG Tab PO SCH (08:17)
--- NOTE | 2020-12-14 08:18 | PCM.PN ---
- General Info Date of Service: 12/14/20 Admission Dx/Problem (Free Text): Admission Diagnosis/Problem Admission Diagnosis/Problem Sepsis, UTI Subjective Update: Feeling improved today. No chest pain. No SOB. No Dizziness or lightheadedness. Reports she has been up ambulating to bathroom without issues, stand by assist with nursing. No other concerns this morning, getting up to chair to eat breakfast. Functional Status: Reports: Pain Controlled, Tolerating Diet, Ambulating - Review of Systems General: Reports: No Symptoms. Denies: Weakness, Fatigue HEENT: Reports: No Symptoms. Denies: Headaches, Visual Changes Pulmonary: Reports: No Symptoms. Denies: Shortness of Breath, Cough Cardiovascular: Reports: No Symptoms. Denies: Chest Pain Gastrointestinal: Reports: No Symptoms. Denies: Abdominal Pain Genitourinary: Reports: No Symptoms. Denies: Dysuria, Frequency Skin: Reports: No Symptoms Neurological: Reports: No Symptoms Psychiatric: Reports: No Symptoms - Patient Data Vitals - Most Recent: Last Vital Signs Temp 98.6 F 12/14/20 06:40 Pulse 86 12/14/20 06:40 Resp 16 12/14/20 06:40 BP 123/45 L 12/14/20 06:40 Pulse Ox 93 L 12/14/20 06:40 Weight - Most Recent: 73.936 kg I&O - Last 24 Hours: Intake & Output 12/13/20 12/14/20 12/14/20 22:59 06:59 14:59 Intake Total 870 Output Total 300 400 Balance -300 470 Lab Results Last 24 Hours: Laboratory Results - last 24 hr 12/13/20 12/13/20 12/13/20 Range/Units 17:46 17:46 17:46 WBC 10.26 (4.0-11.0) K/uL RBC 3.93 L (4.30-5.90) M/uL Hgb 11.9 L (12.0-16.0) g/dL Hct 34.9 L (36.0-46.0) % MCV 88.8 (80.0-98.0) fL MCH 30.3 (27.0-32.0) pg MCHC 34.1 (31.0-37.0) g/dL RDW Std Deviation 44.5 (28.0-62.0) fl RDW Coeff of Librado 14 (11.0-15.0) % Plt Count 194 (150-400) K/uL MPV 9.00 (7.40-12.00) fL Neut % (Auto) 85.6 H (48.0-80.0) % Lymph % (Auto) 5.7 L (16.0-40.0) % Sanders % (Auto) 8.6 (0.0-15.0) % Eos % (Auto) 0.0 (0.0-7.0) % Baso % (Auto) 0.1 (0.0-1.5) % Neut # (Auto) 8.8 H (1.4-5.7) K/uL Lymph # (Auto) 0.6 (0.6-2.4) K/uL Sanders # (Auto) 0.9 H (0.0-0.8) K/uL Eos # (Auto) 0.0 (0.0-0.7) K/uL Baso # (Auto) 0.0 (0.0-0.1) K/uL Nucleated RBC % 0.0 /100WBC Nucleated RBCs # 0 K/uL INR Sodium 136 (136-145) mmol/L Potassium 3.6 (3.5-5.1) mmol/L Chloride 98 (98-107) mmol/L Carbon Dioxide 30.3 (21.0-32.0) mmol/L BUN 19 H (7.0-18.0) mg/dL Creatinine 1.0 (0.6-1.0) mg/dL Est Cr Clr Drug Dosing 37.01 mL/min Estimated GFR (MDRD) 52.7 ml/min Glucose 134 H (74-106) mg/dL POC Glucose (70-99) mg/dL Lactic Acid (0.4-2.0) mmol/L Calcium 9.0 (8.5-10.1) mg/dL Phosphorus (2.6-4.7) mg/dL Magnesium (1.8-2.4) mg/dL Total Bilirubin 1.3 H (0.2-1.0) mg/dL AST 23 (15-37) IU/L ALT 30 (14-63) IU/L Alkaline Phosphatase 62 (46-116) U/L Troponin I < 0.050 (0.000-0.056) ng/mL Total Protein 6.9 (6.4-8.2) g/dL Albumin 3.4 (3.4-5.0) g/dL Globulin 3.5 (2.6-4.0) g/dL Albumin/Globulin Ratio 1.0 (0.9-1.6) Lipase 40 L (73-393) U/L TSH, Ultra Sensitive 0.52 (0.36-3.74) uIU/mL Urine Color Urine Appearance Urine pH (5.0-8.0) Ur Specific Thornton (1.001-1.035) Urine Protein (NEGATIVE) mg/dL Urine Glucose (UA) (NEGATIVE) mg/dL Urine Ketones (NEGATIVE) mg/dL Urine Occult Blood (NEGATIVE) Urine Nitrite (NEGATIVE) Urine Bilirubin (NEGATIVE) Urine Urobilinogen (<2.0) EU/dL Ur Leukocyte Esterase (NEGATIVE) Urine RBC (0-2/HPF) Urine WBC (0-5/HPF) Ur Epithelial Cells (NONE-FEW) Urine Bacteria (NEGATIVE) Urine Mucus (NONE-MOD) SARS-CoV-2 RNA (ROMMEL) (NEGATIVE) 12/13/20 12/13/20 12/13/20 Range/Units 17:46 17:47 19:16 WBC (4.0-11.0) K/uL RBC (4.30-5.90) M/uL Hgb (12.0-16.0) g/dL Hct (36.0-46.0) % MCV (80.0-98.0) fL MCH (27.0-32.0) pg MCHC (31.0-37.0) g/dL RDW Std Deviation (28.0-62.0) fl RDW Coeff of Librado (11.0-15.0) % Plt Count (150-400) K/uL MPV (7.40-12.00) fL Neut % (Auto) (48.0-80.0) % Lymph % (Auto) (16.0-40.0) % Sanders % (Auto) (0.0-15.0) % Eos % (Auto) (0.0-7.0) % Baso % (Auto) (0.0-1.5) % Neut # (Auto) (1.4-5.7) K/uL Lymph # (Auto) (0.6-2.4) K/uL Sanders # (Auto) (0.0-0.8) K/uL Eos # (Auto) (0.0-0.7) K/uL Baso # (Auto) (0.0-0.1) K/uL Nucleated RBC % /100WBC Nucleated RBCs # K/uL INR 1.19 Sodium (136-145) mmol/L Potassium (3.5-5.1) mmol/L Chloride (98-107) mmol/L Carbon Dioxide (21.0-32.0) mmol/L BUN (7.0-18.0) mg/dL Creatinine (0.6-1.0) mg/dL Est Cr Clr Drug Dosing mL/min Estimated GFR (MDRD) ml/min Glucose (74-106) mg/dL POC Glucose 135 H (70-99) mg/dL Lactic Acid (0.4-2.0) mmol/L Calcium (8.5-10.1) mg/dL Phosphorus (2.6-4.7) mg/dL Magnesium (1.8-2.4) mg/dL Total Bilirubin (0.2-1.0) mg/dL AST (15-37) IU/L ALT (14-63) IU/L Alkaline Phosphatase (46-116) U/L Troponin I (0.000-0.056) ng/mL Total Protein (6.4-8.2) g/dL Albumin (3.4-5.0) g/dL Globulin (2.6-4.0) g/dL Albumin/Globulin Ratio (0.9-1.6) Lipase (73-393) U/L TSH, Ultra Sensitive (0.36-3.74) uIU/mL Urine Color Urine Appearance Urine pH (5.0-8.0) Ur Specific Thornton (1.001-1.035) Urine Protein (NEGATIVE) mg/dL Urine Glucose (UA) (NEGATIVE) mg/dL Urine Ketones (NEGATIVE) mg/dL Urine Occult Blood (NEGATIVE) Urine Nitrite (NEGATIVE) Urine Bilirubin (NEGATIVE) Urine Urobilinogen (<2.0) EU/dL Ur Leukocyte Esterase (NEGATIVE) Urine RBC (0-2/HPF) Urine WBC (0-5/HPF) Ur Epithelial Cells (NONE-FEW) Urine Bacteria (NEGATIVE) Urine Mucus (NONE-MOD) SARS-CoV-2 RNA (ROMMEL) NEGATIVE (NEGATIVE) 12/13/20 12/13/20 12/13/20 Range/Units 19:31 19:42 20:52 WBC (4.0-11.0) K/uL RBC (4.30-5.90) M/uL Hgb (12.0-16.0) g/dL Hct (36.0-46.0) % MCV (80.0-98.0) fL MCH (27.0-32.0) pg MCHC (31.0-37.0) g/dL RDW Std Deviation (28.0-62.0) fl RDW Coeff of Librado (11.0-15.0) % Plt Count (150-400) K/uL MPV (7.40-12.00) fL Neut % (Auto) (48.0-80.0) % Lymph % (Auto) (16.0-40.0) % Sanders % (Auto) (0.0-15.0) % Eos % (Auto) (0.0-7.0) % Baso % (Auto) (0.0-1.5) % Neut # (Auto) (1.4-5.7) K/uL Lymph # (Auto) (0.6-2.4) K/uL Sanders # (Auto) (0.0-0.8) K/uL Eos # (Auto) (0.0-0.7) K/uL Baso # (Auto) (0.0-0.1) K/uL Nucleated RBC % /100WBC Nucleated RBCs # K/uL INR Sodium (136-145) mmol/L Potassium (3.5-5.1) mmol/L Chloride (98-107) mmol/L Carbon Dioxide (21.0-32.0) mmol/L BUN (7.0-18.0) mg/dL Creatinine (0.6-1.0) mg/dL Est Cr Clr Drug Dosing mL/min Estimated GFR (MDRD) ml/min Glucose (74-106) mg/dL POC Glucose (70-99) mg/dL Lactic Acid 2.5 H* (0.4-2.0) mmol/L Calcium (8.5-10.1) mg/dL Phosphorus (2.6-4.7) mg/dL Magnesium (1.8-2.4) mg/dL Total Bilirubin (0.2-1.0) mg/dL AST (15-37) IU/L ALT (14-63) IU/L Alkaline Phosphatase (46-116) U/L Troponin I < 0.050 (0.000-0.056) ng/mL Total Protein (6.4-8.2) g/dL Albumin (3.4-5.0) g/dL Globulin (2.6-4.0) g/dL Albumin/Globulin Ratio (0.9-1.6) Lipase (73-393) U/L TSH, Ultra Sensitive (0.36-3.74) uIU/mL Urine Color YELLOW Urine Appearance SLT CLOUDY Urine pH 6.0 (5.0-8.0) Ur Specific Thornton <= 1.005 (1.001-1.035) Urine Protein TRACE H (NEGATIVE) mg/dL Urine Glucose (UA) NEGATIVE (NEGATIVE) mg/dL Urine Ketones NEGATIVE (NEGATIVE) mg/dL Urine Occult Blood TRACE-INTACT H (NEGATIVE) Urine Nitrite POSITIVE H (NEGATIVE) Urine Bilirubin NEGATIVE (NEGATIVE) Urine Urobilinogen 0.2 (<2.0) EU/dL Ur Leukocyte Esterase TRACE H (NEGATIVE) Urine RBC 1-3 (0-2/HPF) Urine WBC 4-6 (0-5/HPF) Ur Epithelial Cells FEW (NONE-FEW) Urine Bacteria 1+ H (NEGATIVE) Urine Mucus LIGHT (NONE-MOD) SARS-CoV-2 RNA (ROMMEL) (NEGATIVE) 12/14/20 12/14/20 12/14/20 Range/Units 06:18 06:18 06:18 WBC 8.83 (4.0-11.0) K/uL RBC 3.47 L (4.30-5.90) M/uL Hgb 10.4 L (12.0-16.0) g/dL Hct 31.1 L (36.0-46.0) % MCV 89.6 (80.0-98.0) fL MCH 30.0 (27.0-32.0) pg MCHC 33.4 (31.0-37.0) g/dL RDW Std Deviation 46.1 (28.0-62.0) fl RDW Coeff of Librado 14 (11.0-15.0) % Plt Count 155 (150-400) K/uL MPV 8.70 (7.40-12.00) fL Neut % (Auto) 87.6 H (48.0-80.0) % Lymph % (Auto) 6.6 L (16.0-40.0) % Sanders % (Auto) 5.7 (0.0-15.0) % Eos % (Auto) 0.0 (0.0-7.0) % Baso % (Auto) 0.1 (0.0-1.5) % Neut # (Auto) 7.7 H (1.4-5.7) K/uL Lymph # (Auto) 0.6 (0.6-2.4) K/uL Sanders # (Auto) 0.5 (0.0-0.8) K/uL Eos # (Auto) 0.0 (0.0-0.7) K/uL Baso # (Auto) 0.0 (0.0-0.1) K/uL Nucleated RBC % 0.0 /100WBC Nucleated RBCs # 0 K/uL INR Sodium 138 (136-145) mmol/L Potassium 3.6 (3.5-5.1) mmol/L Chloride 102 (98-107) mmol/L Carbon Dioxide 28.6 (21.0-32.0) mmol/L BUN 18 (7.0-18.0) mg/dL Creatinine 1.0 (0.6-1.0) mg/dL Est Cr Clr Drug Dosing 36.34 mL/min Estimated GFR (MDRD) 52.6 ml/min Glucose 103 (74-106) mg/dL POC Glucose (70-99) mg/dL Lactic Acid 0.9 (0.4-2.0) mmol/L Calcium 7.7 L (8.5-10.1) mg/dL Phosphorus 3.6 (2.6-4.7) mg/dL Magnesium 1.5 L (1.8-2.4) mg/dL Total Bilirubin (0.2-1.0) mg/dL AST (15-37) IU/L ALT (14-63) IU/L Alkaline Phosphatase (46-116) U/L Troponin I (0.000-0.056) ng/mL Total Protein (6.4-8.2) g/dL Albumin (3.4-5.0) g/dL Globulin (2.6-4.0) g/dL Albumin/Globulin Ratio (0.9-1.6) Lipase (73-393) U/L TSH, Ultra Sensitive (0.36-3.74) uIU/mL Urine Color Urine Appearance Urine pH (5.0-8.0) Ur Specific Thornton (1.001-1.035) Urine Protein (NEGATIVE) mg/dL Urine Glucose (UA) (NEGATIVE) mg/dL Urine Ketones (NEGATIVE) mg/dL Urine Occult Blood (NEGATIVE) Urine Nitrite (NEGATIVE) Urine Bilirubin (NEGATIVE) Urine Urobilinogen (<2.0) EU/dL Ur Leukocyte Esterase (NEGATIVE) Urine RBC (0-2/HPF) Urine WBC (0-5/HPF) Ur Epithelial Cells (NONE-FEW) Urine Bacteria (NEGATIVE) Urine Mucus (NONE-MOD) SARS-CoV-2 RNA (ROMMEL) (NEGATIVE) Med Orders - Current: Current Medications Acetaminophen (Acetaminophen 325 Mg Tab) 650 mg PO Q4H PRN PRN Reason: Pain (Mild 1-3)/fever Albuterol/Ipratropium (Albuterol/Ipratropium 3.0-0.5 Mg/3 Ml Neb Soln) 3 ml NEB Q4HRRT PRN PRN Reason: Shortness Of Breath/wheezing Aspirin (Aspirin 81 Mg Tab.Chew) 81 mg PO DAILY [facility] Last Admin: 12/14/20 00:22 Dose: 81 mg Documented by: Atorvastatin Calcium (Atorvastatin 20 Mg Tab) 20 mg PO DAILY [facility] Pantoprazole Sodium 40 mg/ (Sodium Chloride) 10 mls @ 300 mls/hr IV DAILY [facility] Ceftriaxone Sodium/Dextrose 1 (gm/ Premix) 50 mls @ 100 mls/hr IV Q24H [facility] Levothyroxine Sodium (Levothyroxine 75 Mcg Tab) 75 mcg PO ACBREAKFAST [facility] Ondansetron HCl (Ondansetron 4 Mg/2 Ml Sdv) 4 mg IVPUSH Q4H PRN PRN Reason: Nausea/Vomiting Latanoprost 0.005% (Eye Drop) 1 each EYEBOTH BEDTIME [facility] Discontinued Medications Acetaminophen (Acetaminophen 500 Mg Tab) 1,000 mg PO ONETIME ONE Stop: 12/13/20 19:15 Last Admin: 12/13/20 19:23 Dose: 1,000 mg Documented by: Sodium Chloride (Normal Saline) 1,000 mls @ 999 mls/hr IV STAT ONE Stop: 12/13/20 20:21 Last Admin: 12/13/20 19:26 Dose: 999 mls/hr Documented by: Sodium Chloride (Normal Saline) 1,000 mls @ 999 mls/hr IV .Bolus ONE Stop: 12/13/20 20:22 Last Admin: 12/13/20 21:46 Dose: 999 mls/hr Documented by: Ceftriaxone Sodium/Dextrose 1 (gm/ Premix) 50 mls @ 100 mls/hr IV ONETIME ONE Stop: 12/13/20 20:29 Last Admin: 12/13/20 21:45 Dose: 100 mls/hr Documented by: Lactated Ringer's (Ringers, Lactated) 1,000 mls @ 125 mls/hr IV ONETIME ONE Stop: 12/14/20 06:22 Last Admin: 12/14/20 00:20 Dose: 125 mls/hr Documented by: Iopamidol (Iopamidol 755 Mg/Ml 500 Ml Multipack Bottle) 100 ml IVPUSH ONETIME STA Stop: 12/13/20 18:26 Last Admin: 12/13/20 18:25 Dose: 100 ml Documented by: Ondansetron HCl (Ondansetron 4 Mg/2 Ml Sdv) 4 mg IVPUSH ONETIME ONE Stop: 12/13/20 17:37 Last Admin: 12/13/20 17:49 Dose: 4 mg Documented by: Ondansetron HCl (Ondansetron 4 Mg/2 Ml Sdv) 4 mg IVPUSH ONETIME ONE Stop: 12/13/20 19:36 Last Admin: 12/13/20 19:38 Dose: 4 mg Documented by: Ondansetron HCl (Ondansetron 4 Mg/2 Ml Sdv) Confirm Administered Dose 4 mg .DANYELL VillalbaSTK-MED ONE Stop: 12/13/20 19:36 Last Admin: 12/13/20 19:46 Dose: Not Given Documented by: - Exam Quality Assessment: DVT Prophylaxis. No: Supplemental Oxygen General: Alert, Oriented, Cooperative, No Acute Distress Lungs: Clear to Auscultation, Normal Respiratory Effort Cardiovascular: Regular Rate, Regular Rhythm GI/Abdominal Exam: Normal Bowel Sounds, Soft, Non-Tender, No Distention Extremities: Normal Inspection, Normal Range of Motion, Non-Tender Neurological: No New Focal Deficit Psy/Mental Status: Alert, Normal Affect, Normal Mood - Patient Data Lab Results Last 24 hrs: Laboratory Results - last 24 hr 12/13/20 12/13/20 12/13/20 Range/Units 17:46 17:46 17:46 WBC 10.26 (4.0-11.0) K/uL RBC 3.93 L (4.30-5.90) M/uL Hgb 11.9 L (12.0-16.0) g/dL Hct 34.9 L (36.0-46.0) % MCV 88.8 (80.0-98.0) fL MCH 30.3 (27.0-32.0) pg MCHC 34.1 (31.0-37.0) g/dL RDW Std Deviation 44.5 (28.0-62.0) fl RDW Coeff of Librado 14 (11.0-15.0) % Plt Count 194 (150-400) K/uL MPV 9.00 (7.40-12.00) fL Neut % (Auto) 85.6 H (48.0-80.0) % Lymph % (Auto) 5.7 L (16.0-40.0) % Sanders % (Auto) 8.6 (0.0-15.0) % Eos % (Auto) 0.0 (0.0-7.0) % Baso % (Auto) 0.1 (0.0-1.5) % Neut # (Auto) 8.8 H (1.4-5.7) K/uL Lymph # (Auto) 0.6 (0.6-2.4) K/uL Sanders # (Auto) 0.9 H (0.0-0.8) K/uL Eos # (Auto) 0.0 (0.0-0.7) K/uL Baso # (Auto) 0.0 (0.0-0.1) K/uL Nucleated RBC % 0.0 /100WBC Nucleated RBCs # 0 K/uL INR Sodium 136 (136-145) mmol/L Potassium 3.6 (3.5-5.1) mmol/L Chloride 98 (98-107) mmol/L Carbon Dioxide 30.3 (21.0-32.0) mmol/L BUN 19 H (7.0-18.0) mg/dL Creatinine 1.0 (0.6-1.0) mg/dL Est Cr Clr Drug Dosing 37.01 mL/min Estimated GFR (MDRD) 52.7 ml/min Glucose 134 H (74-106) mg/dL POC Glucose (70-99) mg/dL Lactic Acid (0.4-2.0) mmol/L Calcium 9.0 (8.5-10.1) mg/dL Phosphorus (2.6-4.7) mg/dL Magnesium (1.8-2.4) mg/dL Total Bilirubin 1.3 H (0.2-1.0) mg/dL AST 23 (15-37) IU/L ALT 30 (14-63) IU/L Alkaline Phosphatase 62 (46-116) U/L Troponin I < 0.050 (0.000-0.056) ng/mL Total Protein 6.9 (6.4-8.2) g/dL Albumin 3.4 (3.4-5.0) g/dL Globulin 3.5 (2.6-4.0) g/dL Albumin/Globulin Ratio 1.0 (0.9-1.6) Lipase 40 L (73-393) U/L TSH, Ultra Sensitive 0.52 (0.36-3.74) uIU/mL Urine Color Urine Appearance Urine pH (5.0-8.0) Ur Specific Thornton (1.001-1.035) Urine Protein (NEGATIVE) mg/dL Urine Glucose (UA) (NEGATIVE) mg/dL Urine Ketones (NEGATIVE) mg/dL Urine Occult Blood (NEGATIVE) Urine Nitrite (NEGATIVE) Urine Bilirubin (NEGATIVE) Urine Urobilinogen (<2.0) EU/dL Ur Leukocyte Esterase (NEGATIVE) Urine RBC (0-2/HPF) Urine WBC (0-5/HPF) Ur Epithelial Cells (NONE-FEW) Urine Bacteria (NEGATIVE) Urine Mucus (NONE-MOD) SARS-CoV-2 RNA (ROMMEL) (NEGATIVE) 12/13/20 12/13/20 12/13/20 Range/Units 17:46 17:47 19:16 WBC (4.0-11.0) K/uL RBC (4.30-5.90) M/uL Hgb (12.0-16.0) g/dL Hct (36.0-46.0) % MCV (80.0-98.0) fL MCH (27.0-32.0) pg MCHC (31.0-37.0) g/dL RDW Std Deviation (28.0-62.0) fl RDW Coeff of Librado (11.0-15.0) % Plt Count (150-400) K/uL MPV (7.40-12.00) fL Neut % (Auto) (48.0-80.0) % Lymph % (Auto) (16.0-40.0) % Sanders % (Auto) (0.0-15.0) % Eos % (Auto) (0.0-7.0) % Baso % (Auto) (0.0-1.5) % Neut # (Auto) (1.4-5.7) K/uL Lymph # (Auto) (0.6-2.4) K/uL Sanders # (Auto) (0.0-0.8) K/uL Eos # (Auto) (0.0-0.7) K/uL Baso # (Auto) (0.0-0.1) K/uL Nucleated RBC % /100WBC Nucleated RBCs # K/uL INR 1.19 Sodium (136-145) mmol/L Potassium (3.5-5.1) mmol/L Chloride (98-107) mmol/L Carbon Dioxide (21.0-32.0) mmol/L BUN (7.0-18.0) mg/dL Creatinine (0.6-1.0) mg/dL Est Cr Clr Drug Dosing mL/min Estimated GFR (MDRD) ml/min Glucose (74-106) mg/dL POC Glucose 135 H (70-99) mg/dL Lactic Acid (0.4-2.0) mmol/L Calcium (8.5-10.1) mg/dL Phosphorus (2.6-4.7) mg/dL Magnesium (1.8-2.4) mg/dL Total Bilirubin (0.2-1.0) mg/dL AST (15-37) IU/L ALT (14-63) IU/L Alkaline Phosphatase (46-116) U/L Troponin I (0.000-0.056) ng/mL Total Protein (6.4-8.2) g/dL Albumin (3.4-5.0) g/dL Globulin (2.6-4.0) g/dL Albumin/Globulin Ratio (0.9-1.6) Lipase (73-393) U/L TSH, Ultra Sensitive (0.36-3.74) uIU/mL Urine Color Urine Appearance Urine pH (5.0-8.0) Ur Specific Thornton (1.001-1.035) Urine Protein (NEGATIVE) mg/dL Urine Glucose (UA) (NEGATIVE) mg/dL Urine Ketones (NEGATIVE) mg/dL Urine Occult Blood (NEGATIVE) Urine Nitrite (NEGATIVE) Urine Bilirubin (NEGATIVE) Urine Urobilinogen (<2.0) EU/dL Ur Leukocyte Esterase (NEGATIVE) Urine RBC (0-2/HPF) Urine WBC (0-5/HPF) Ur Epithelial Cells (NONE-FEW) Urine Bacteria (NEGATIVE) Urine Mucus (NONE-MOD) SARS-CoV-2 RNA (ROMMEL) NEGATIVE (NEGATIVE) 12/13/20 12/13/20 12/13/20 Range/Units 19:31 19:42 20:52 WBC (4.0-11.0) K/uL RBC (4.30-5.90) M/uL Hgb (12.0-16.0) g/dL Hct (36.0-46.0) % MCV (80.0-98.0) fL MCH (27.0-32.0) pg MCHC (31.0-37.0) g/dL RDW Std Deviation (28.0-62.0) fl RDW Coeff of Librado (11.0-15.0) % Plt Count (150-400) K/uL MPV (7.40-12.00) fL Neut % (Auto) (48.0-80.0) % Lymph % (Auto) (16.0-40.0) % Sanders % (Auto) (0.0-15.0) % Eos % (Auto) (0.0-7.0) % Baso % (Auto) (0.0-1.5) % Neut # (Auto) (1.4-5.7) K/uL Lymph # (Auto) (0.6-2.4) K/uL Sanders # (Auto) (0.0-0.8) K/uL Eos # (Auto) (0.0-0.7) K/uL Baso # (Auto) (0.0-0.1) K/uL Nucleated RBC % /100WBC Nucleated RBCs # K/uL INR Sodium (136-145) mmol/L Potassium (3.5-5.1) mmol/L Chloride (98-107) mmol/L Carbon Dioxide (21.0-32.0) mmol/L BUN (7.0-18.0) mg/dL Creatinine (0.6-1.0) mg/dL Est Cr Clr Drug Dosing mL/min Estimated GFR (MDRD) ml/min Glucose (74-106) mg/dL POC Glucose (70-99) mg/dL Lactic Acid 2.5 H* (0.4-2.0) mmol/L Calcium (8.5-10.1) mg/dL Phosphorus (2.6-4.7) mg/dL Magnesium (1.8-2.4) mg/dL Total Bilirubin (0.2-1.0) mg/dL AST (15-37) IU/L ALT (14-63) IU/L Alkaline Phosphatase (46-116) U/L Troponin I < 0.050 (0.000-0.056) ng/mL Total Protein (6.4-8.2) g/dL Albumin (3.4-5.0) g/dL Globulin (2.6-4.0) g/dL Albumin/Globulin Ratio (0.9-1.6) Lipase (73-393) U/L TSH, Ultra Sensitive (0.36-3.74) uIU/mL Urine Color YELLOW Urine Appearance SLT CLOUDY Urine pH 6.0 (5.0-8.0) Ur Specific Thornton <= 1.005 (1.001-1.035) Urine Protein TRACE H (NEGATIVE) mg/dL Urine Glucose (UA) NEGATIVE (NEGATIVE) mg/dL Urine Ketones NEGATIVE (NEGATIVE) mg/dL Urine Occult Blood TRACE-INTACT H (NEGATIVE) Urine Nitrite POSITIVE H (NEGATIVE) Urine Bilirubin NEGATIVE (NEGATIVE) Urine Urobilinogen 0.2 (<2.0) EU/dL Ur Leukocyte Esterase TRACE H (NEGATIVE) Urine RBC 1-3 (0-2/HPF) Urine WBC 4-6 (0-5/HPF) Ur Epithelial Cells FEW (NONE-FEW) Urine Bacteria 1+ H (NEGATIVE) Urine Mucus LIGHT (NONE-MOD) SARS-CoV-2 RNA (ROMMEL) (NEGATIVE) 12/14/20 12/14/20 12/14/20 Range/Units 06:18 06:18 06:18 WBC 8.83 (4.0-11.0) K/uL RBC 3.47 L (4.30-5.90) M/uL Hgb 10.4 L (12.0-16.0) g/dL Hct 31.1 L (36.0-46.0) % MCV 89.6 (80.0-98.0) fL MCH 30.0 (27.0-32.0) pg MCHC 33.4 (31.0-37.0) g/dL RDW Std Deviation 46.1 (28.0-62.0) fl RDW Coeff of Librado 14 (11.0-15.0) % Plt Count 155 (150-400) K/uL MPV 8.70 (7.40-12.00) fL Neut % (Auto) 87.6 H (48.0-80.0) % Lymph % (Auto) 6.6 L (16.0-40.0) % Sanders % (Auto) 5.7 (0.0-15.0) % Eos % (Auto) 0.0 (0.0-7.0) % Baso % (Auto) 0.1 (0.0-1.5) % Neut # (Auto) 7.7 H (1.4-5.7) K/uL Lymph # (Auto) 0.6 (0.6-2.4) K/uL Sanders # (Auto) 0.5 (0.0-0.8) K/uL Eos # (Auto) 0.0 (0.0-0.7) K/uL Baso # (Auto) 0.0 (0.0-0.1) K/uL Nucleated RBC % 0.0 /100WBC Nucleated RBCs # 0 K/uL INR Sodium 138 (136-145) mmol/L Potassium 3.6 (3.5-5.1) mmol/L Chloride 102 (98-107) mmol/L Carbon Dioxide 28.6 (21.0-32.0) mmol/L BUN 18 (7.0-18.0) mg/dL Creatinine 1.0 (0.6-1.0) mg/dL Est Cr Clr Drug Dosing 36.34 mL/min Estimated GFR (MDRD) 52.6 ml/min Glucose 103 (74-106) mg/dL POC Glucose (70-99) mg/dL Lactic Acid 0.9 (0.4-2.0) mmol/L Calcium 7.7 L (8.5-10.1) mg/dL Phosphorus 3.6 (2.6-4.7) mg/dL Magnesium 1.5 L (1.8-2.4) mg/dL Total Bilirubin (0.2-1.0) mg/dL AST (15-37) IU/L ALT (14-63) IU/L Alkaline Phosphatase (46-116) U/L Troponin I (0.000-0.056) ng/mL Total Protein (6.4-8.2) g/dL Albumin (3.4-5.0) g/dL Globulin (2.6-4.0) g/dL Albumin/Globulin Ratio (0.9-1.6) Lipase (73-393) U/L TSH, Ultra Sensitive (0.36-3.74) uIU/mL Urine Color Urine Appearance Urine pH (5.0-8.0) Ur Specific Thornton (1.001-1.035) Urine Protein (NEGATIVE) mg/dL Urine Glucose (UA) (NEGATIVE) mg/dL Urine Ketones (NEGATIVE) mg/dL Urine Occult Blood (NEGATIVE) Urine Nitrite (NEGATIVE) Urine Bilirubin (NEGATIVE) Urine Urobilinogen (<2.0) EU/dL Ur Leukocyte Esterase (NEGATIVE) Urine RBC (0-2/HPF) Urine WBC (0-5/HPF) Ur Epithelial Cells (NONE-FEW) Urine Bacteria (NEGATIVE) Urine Mucus (NONE-MOD) SARS-CoV-2 RNA (ROMMEL) (NEGATIVE) Result Diagrams: 12/14/20 06:18 08/19/21 06:18 Sepsis Event Note - Evaluation Sepsis Screening Result: No Definite Risk - Focused Exam Vital Signs: Vital Signs Temp Pulse Resp BP Pulse Ox Pulse Ox 12/14/20 06:40 98.6 F 86 16 123/45 L 93 L 12/14/20 02:30 60 18 94 L 12/13/20 23:23 96.6 F L 75 20 101/49 L 94 L 12/13/20 22:24 96 - Problem List & Annotations (1) Sepsis SNOMED Code(s): 85926420 Code(s): A41.9 - SEPSIS, UNSPECIFIED ORGANISM Status: Acute Current Visit: Yes (2) UTI (urinary tract infection) SNOMED Code(s): 42158829 Code(s): N39.0 - URINARY TRACT INFECTION, SITE NOT SPECIFIED Status: Acute Current Visit: Yes (3) Dizziness SNOMED Code(s): 045929025, 343414118 Code(s): R42 - DIZZINESS AND GIDDINESS Status: Acute Current Visit: Yes (4) Nausea & vomiting SNOMED Code(s): 39746945 Code(s): R11.2 - NAUSEA WITH VOMITING, UNSPECIFIED Status: Acute Current Visit: Yes (5) HTN (hypertension) SNOMED Code(s): 80191620 Code(s): I10 - ESSENTIAL (PRIMARY) HYPERTENSION Status: Chronic Current Visit: Yes (6) Hypothyroidism SNOMED Code(s): 88122311 Code(s): E03.9 - HYPOTHYROIDISM, UNSPECIFIED Status: Chronic Current Visit: Yes (7) HX: breast cancer SNOMED Code(s): 969673359 Code(s): Z85.3 - PERSONAL HISTORY OF MALIGNANT NEOPLASM OF BREAST Status: Chronic Current Visit: Yes - Problem List Review Problem List Initiated/Reviewed/Updated: Yes - Plan Plan:: 84-year-old female admitted for sepsis likely secondary to UTI, no other evident source of infection 1. Sepsis, UTI -Blood pressures have improved -Sepsis resolved -Continue IV Rocephin -Blood cultures and urine culture pending 2. Dizziness -Consult physical therapy -Dizziness improved after initial sepsis management 3. Hypertension/hypothyroidism -Hold off on antihypertensives as blood pressure was softer on admission -Restart levothyroxine VTE prophylaxis: Heparin GI prophylaxis: Protonix CODE STATUS: Full Code Dispo: 1 day
[2020-12-14] MEDS ORDERED: Magnesium Sulfate/Water 4 GM in Premix Bag 1 BAG IV ONE (08:20)
[2020-12-14] MEDS ORDERED: Sodium Chloride 0.9% 2.5 ML Syringe FLUSH PRN (08:21)
[2020-12-14] MEDS: Pantoprazole 40 MG in Sodium Chloride 0.9% 10 ML IV SCH (08:34)
[2020-12-14] MEDS ORDERED: Levothyroxine 50 MCG Tab PO SCH (09:00)
[2020-12-14] MEDS ORDERED: Cetirizine 10 MG Tab PO ONE (11:40)
[2020-12-14] MEDS: Acetaminophen 325 MG Tab PO PRN (13:33)
[2020-12-14] MEDS: Fluticasone Propionate Nasal Spray 16 GM Bottle NASBOTH SCH (13:35)
[2020-12-14] MEDS ORDERED: Magnesium Sulfate/Water 100 ML ONE (13:47)
[2020-12-14] MEDS: Heparin Sodium 5,000 Units/ML Vial SUBCUT SCH ×2 (13:55→21:38)
[2020-12-14] MEDS ORDERED: cefTRIAXone 1 GM in Premix Bag 1 BAG IV SCH (21:00)
[2020-12-15 06:09] LABS: CARBON DIOXIDE,CO2 27.8 mmol/L (21.0-32.0); POTASSIUM,K 3.8 mmol/L (3.5-5.1)
[2020-12-15] MEDS: Levothyroxine 75 MCG Tab PO SCH (06:43)
[2020-12-15] MEDS: Acetaminophen 325 MG Tab PO PRN (06:43)
[2020-12-15] MEDS: atorvaSTATin 20 MG Tab PO SCH (08:23)
[2020-12-15] MEDS: Heparin Sodium 5,000 Units/ML Vial SUBCUT SCH (08:23)
[2020-12-15] MEDS: Fluticasone Propionate Nasal Spray 16 GM Bottle NASBOTH SCH (08:24)
[2020-12-15] MEDS: Aspirin 81 MG Tab.Chew PO SCH (08:24)
[2020-12-15] MEDS: Pantoprazole 40 MG in Sodium Chloride 0.9% 10 ML IV SCH (08:25)
[2020-12-15] MEDS ORDERED: Lactated Ringers 500 ML IV ONE (12:16)
--- NOTE | 2020-12-15 12:59 | PCM.DCSUM1 ---
Discharge Summary - Hospital Course Free Text/Narrative:: 84-year-old female with history of HTN and hypothyroidism presented to the ER with complaints of nausea, vomiting, dizziness, vertigo for 1 day. She also complained of facial droop of her left eyelid. No focal weakness to extremities were noted. Patient denied changes in vision, slurred speech or difficulty with ambulation. She had a CT head which was unremarkable. CTA of head/neck was unremarkable. Patient was febrile, tachycardic and hypotensive 90/60 with a MAP of 67, saturating at 88% on room air. Her UA was positive for UTI. Lactic acid was 2.5. Sepsis protocol was initiated. She was treated with ceftriaxone, IV fluid boluses and urine and blood cultures were obtained. Repeat lactic acid was normal. Patient's blood pressures were soft and antihypertensives were held. Patient's symptoms improved and she denied chest pain, dizziness or lightheadedness. Patient was ambulating to the bathroom without issue. She was assessed by physical therapy and was cleared. Pain was controlled, she was tolerating diet and ambulating on her own. Patient was maintained on LR. Blood pressures have stabilized. Patient will be discharged on 7 days of cefdinir. Advised patient to hold off on restarting home antihypertensive medications and check her blood pressure daily until it starts to elevate. Instructed to restart BP meds once pressures elevate. Advised to follow up with PCP closely regarding blood pressure. - Discharge Data Discharge Date: 12/15/20 Discharge Disposition: Home, Self-Care 01 Condition: Good - Referral to Home Health Primary Care Physician: Iliana Shen NP - Discharge Diagnosis/Problem(s) (1) UTI (urinary tract infection) SNOMED Code(s): 69412495 ICD Code: N39.0 - URINARY TRACT INFECTION, SITE NOT SPECIFIED Status: Acute Current Visit: Yes - Patient Summary/Data Consults: Consultations 12/13/20 22:32 Consult to Physical Therapy [PT Evaluation and Treatment] [CONS] Stat - Patient Instructions Diet: Usual Diet as Tolerated Activity: As Tolerated Notify Provider of: Fever, Increased Pain Other/Special Instructions: You are being discharged on 7 days of antibiotics for your bladder infection. Cefdinir 300 mg - take 1 pill every 12 hours for 7 days total. You are found to have low blood pressure during your stay at the hospital. We gave you IV fluids. We did not give you any of your home blood pressure medications while you are here at the hospital. Please check your blood pressure at home twice a day and DO NOT restart taking your hydrochlorothiazide-losartan or your metoprolol until your blood pressure becomes high. It is important to check it twice a day and when you notice it is starting to increase you start taking your blood pressure medications once again. Please ensure to drink plenty of water. Please speak with your PCP regarding continuing your blood pressure medications. Please continue taking your other home medications. If you experience any flank pain, fevers, chills, dizziness, shortness of breath, chest pain, racing heart, lightheadedness, burning urination, blood in your urine you need to seek medical attention immediately. - Discharge Plan *PRESCRIPTION DRUG MONITORING PROGRAM REVIEWED*: Not Applicable *COPY OF PRESCRIPTION DRUG MONITORING REPORT IN PATIENT NAYELI: Not Applicable Prescriptions/Med Rec: Cefdinir 300 mg PO Q12HR 7 Days #14 capsule Home Medications: Home Meds Latanoprost/Pf [Latanoprost 0.005% Eye Drop] 1 drop EYEBOTH BEDTIME 12/13/20 [History] Levothyroxine Sodium [Levoxyl] 75 mcg PO DAILY 12/14/20 [History] Losartan/Hydrochlorothiazide [Losartan-HCTZ 100-25 MG] 1 tab PO DAILY 12/14/20 [History] Metoprolol Succinate 50 mg PO DAILY 12/14/20 [History] atorvaSTATin [Lipitor] 20 mg PO BEDTIME 12/14/20 [History] Cefdinir 300 mg PO Q12HR 7 Days #14 capsule 12/15/20 [Rx] Forms: ED Department Discharge Referrals: Neeru Maki PA [Physician [employer]] - 12/29/20 10:30 am - Discharge Summary/Plan Comment DC Time >30 min.: Yes Total # of Minutes for Discharge Time: 45 - General Info Admission Dx/Problem (Free Text: Admission Diagnosis/Problem Admission Diagnosis/Problem Sepsis, UTI Functional Status: Reports: Pain Controlled, Tolerating Diet, Ambulating, Urinating - Review of Systems General: Reports: No Symptoms HEENT: Reports: No Symptoms Pulmonary: Reports: No Symptoms Cardiovascular: Reports: No Symptoms Gastrointestinal: Reports: No Symptoms Genitourinary: Reports: No Symptoms Musculoskeletal: Reports: No Symptoms Skin: Reports: No Symptoms Neurological: Reports: No Symptoms - Patient Data Vitals - Most Recent: Last Vital Signs Temp 97.1 F 12/15/20 11:36 Pulse 62 12/15/20 11:36 Resp 18 12/15/20 11:36 BP 106/52 L 12/15/20 11:36 Pulse Ox 95 12/15/20 11:36 Weight - Most Recent: 163 lb I&O - Last 24 hours: Intake & Output 12/14/20 12/15/20 12/15/20 22:59 06:59 14:59 Intake Total 840 1000 Output Total 375 950 Balance 465 50 Lab Results - Last 24 hrs: Laboratory Results - last 24 hr 12/14/20 12/15/20 12/15/20 Range/Units 16:43 05:35 05:35 WBC 5.63 (4.0-11.0) K/uL RBC 3.29 L (4.30-5.90) M/uL Hgb 9.7 L (12.0-16.0) g/dL Hct 29.6 L (36.0-46.0) % MCV 90.0 (80.0-98.0) fL MCH 29.5 (27.0-32.0) pg MCHC 32.8 (31.0-37.0) g/dL RDW Std Deviation 46.4 (28.0-62.0) fl RDW Coeff of [place] 14 (11.0-15.0) % Plt Count 163 (150-400) K/uL MPV 8.90 (7.40-12.00) fL Neut % (Auto) 74.5 (48.0-80.0) % Lymph % (Auto) 16.2 (16.0-40.0) % [place] % (Auto) 9.1 (0.0-15.0) % Eos % (Auto) 0.0 (0.0-7.0) % Baso % (Auto) 0.2 (0.0-1.5) % Neut # (Auto) 4.2 (1.4-5.7) K/uL Lymph # (Auto) 0.9 (0.6-2.4) K/uL [place] # (Auto) 0.5 (0.0-0.8) K/uL Eos # (Auto) 0.0 (0.0-0.7) K/uL Baso # (Auto) 0.0 (0.0-0.1) K/uL Nucleated RBC % 0.0 /100WBC Nucleated RBCs # 0 K/uL Sodium 135 L (136-145) mmol/L Potassium 3.8 (3.5-5.1) mmol/L Chloride 101 (98-107) mmol/L Carbon Dioxide 27.8 (21.0-32.0) mmol/L BUN 20 H (7.0-18.0) mg/dL Creatinine 1.1 H (0.6-1.0) mg/dL Est Cr Clr Drug Dosing 33.03 mL/min Estimated GFR (MDRD) 47.1 ml/min Glucose 89 (74-106) mg/dL POC Glucose 109 H (70-99) mg/dL Calcium 8.0 L (8.5-10.1) mg/dL Magnesium 2.2 (1.8-2.4) mg/dL 12/15/20 12/15/20 Range/Units 08:29 12:02 WBC (4.0-11.0) K/uL RBC (4.30-5.90) M/uL Hgb (12.0-16.0) g/dL Hct (36.0-46.0) % MCV (80.0-98.0) fL MCH (27.0-32.0) pg MCHC (31.0-37.0) g/dL RDW Std Deviation (28.0-62.0) fl RDW Coeff of [place] (11.0-15.0) % Plt Count (150-400) K/uL MPV (7.40-12.00) fL Neut % (Auto) (48.0-80.0) % Lymph % (Auto) (16.0-40.0) % [place] % (Auto) (0.0-15.0) % Eos % (Auto) (0.0-7.0) % Baso % (Auto) (0.0-1.5) % Neut # (Auto) (1.4-5.7) K/uL Lymph # (Auto) (0.6-2.4) K/uL [place] # (Auto) (0.0-0.8) K/uL Eos # (Auto) (0.0-0.7) K/uL Baso # (Auto) (0.0-0.1) K/uL Nucleated RBC % /100WBC Nucleated RBCs # K/uL Sodium (136-145) mmol/L Potassium (3.5-5.1) mmol/L Chloride (98-107) mmol/L Carbon Dioxide (21.0-32.0) mmol/L BUN (7.0-18.0) mg/dL Creatinine (0.6-1.0) mg/dL Est Cr Clr Drug Dosing mL/min Estimated GFR (MDRD) ml/min Glucose (74-106) mg/dL POC Glucose 140 H 80 (70-99) mg/dL Calcium (8.5-10.1) mg/dL Magnesium (1.8-2.4) mg/dL [facility] Results - Last 24 hrs: Microbiology 12/13/20 19:53 Aerobic Blood Culture - Preliminary Blood - Venous - Lab Draw NO GROWTH AFTER 1 DAY Anaerobic Blood Culture - Preliminary NO GROWTH AFTER 1 DAY 12/13/20 19:42 Aerobic Blood Culture - Preliminary Blood - Venous NO GROWTH AFTER 1 DAY Anaerobic Blood Culture - Preliminary NO GROWTH AFTER 1 DAY Med Orders - Current: Current Medications Acetaminophen (Acetaminophen 325 Mg Tab) 650 mg PO Q4H PRN PRN Reason: Pain (Mild 1-3)/fever Last Admin: 12/15/20 06:43 Dose: 650 mg Documented by: Albuterol/Ipratropium (Albuterol/Ipratropium 3.0-0.5 Mg/3 Ml Neb Soln) 3 ml NEB Q4HRRT PRN PRN Reason: Shortness Of Breath/wheezing Aspirin (Aspirin 81 Mg Tab.Chew) 81 mg PO DAILY [facility] Last Admin: 12/15/20 08:24 Dose: 81 mg Documented by: Atorvastatin Calcium (Atorvastatin 20 Mg Tab) 20 mg PO DAILY [facility] Last Admin: 12/15/20 08:23 Dose: 20 mg Documented by: Fluticasone Propionate (Fluticasone Propionate Nasal [place] 16 Gm Bottle) 0 gm NASBOTH DAILY [facility] Last Admin: 12/15/20 08:24 Dose: 2 spray Documented by: Heparin Sodium (Porcine) (Heparin Sodium 5,000 Units/Ml Vial) 5,000 units SUBCUT Q12H [facility] Last Admin: 12/15/20 08:23 Dose: 5,000 units Documented by: Pantoprazole Sodium 40 mg/ (Sodium Chloride) 10 mls @ 300 mls/hr IV DAILY [facility] Last Admin: 12/15/20 08:25 Dose: 300 mls/hr Documented by: Ceftriaxone Sodium/Dextrose 1 (gm/ Premix) 50 mls @ 100 mls/hr IV Q24H [facility] Last Admin: 12/14/20 21:38 Dose: 100 mls/hr Documented by: Lactated Ringer's (Ringers, Lactated) 500 mls @ 250 mls/hr IV ONETIME ONE Stop: 12/15/20 14:15 Last Admin: 12/15/20 12:50 Dose: 250 mls/hr Documented by: Levothyroxine Sodium (Levothyroxine 75 Mcg Tab) 75 mcg PO ACBREAKFAST [facility] Last Admin: 12/15/20 06:43 Dose: 75 mcg Documented by: Ondansetron HCl (Ondansetron 4 Mg/2 Ml Sdv) 4 mg IVPUSH Q4H PRN PRN Reason: Nausea/Vomiting Latanoprost 0.005% (Eye Drop) 1 each EYEBOTH BEDTIME [facility] Last Admin: 12/14/20 21:39 Dose: Not Given Documented by: Sodium Chloride (Sodium Chloride 0.9% 2.5 Ml Syringe) 2.5 ml FLUSH ASDIRECTED PRN PRN Reason: Keep Vein Open Discontinued Medications Acetaminophen (Acetaminophen 500 Mg Tab) 1,000 mg PO ONETIME ONE Stop: 12/13/20 19:15 Last Admin: 12/13/20 19:23 Dose: 1,000 mg Documented by: Cetirizine HCl (Cetirizine 10 Mg Tab) 10 mg PO ONETIME ONE Stop: 12/14/20 11:41 Last Admin: 12/14/20 13:35 Dose: 10 mg Documented by: Sodium Chloride (Normal Saline) 1,000 mls @ 999 mls/hr IV STAT ONE Stop: 12/13/20 20:21 Last Admin: 12/13/20 19:26 Dose: 999 mls/hr Documented by: Sodium Chloride (Normal Saline) 1,000 mls @ 999 mls/hr IV .Bolus ONE Stop: 12/13/20 20:22 Last Admin: 12/13/20 21:46 Dose: 999 mls/hr Documented by: Ceftriaxone Sodium/Dextrose 1 (gm/ Premix) 50 mls @ 100 mls/hr IV ONETIME ONE Stop: 12/13/20 20:29 Last Admin: 12/13/20 21:45 Dose: 100 mls/hr Documented by: Lactated Ringer's (Ringers, Lactated) 1,000 mls @ 125 mls/hr IV ONETIME ONE Stop: 12/14/20 06:22 Last Admin: 12/14/20 00:20 Dose: 125 mls/hr Documented by: Magnesium Sulfate 4 gm/ Premix 100 mls @ 50 mls/hr IV ONETIME ONE Stop: 12/14/20 10:19 Last Admin: 12/14/20 13:55 Dose: 50 mls/hr Documented by: Magnesium Sulfate (Magnesium Sulfate In Water 4 Gm/100 Ml) Confirm Administered Dose 100 mls @ as directed .ROUTE .STK-MED ONE Stop: 12/14/20 13:48 Last Admin: 12/14/20 17:27 Dose: Not Given Documented by: Iopamidol (Iopamidol 755 Mg/Ml 500 Ml Multipack Bottle) 100 ml IVPUSH ONETIME STA Stop: 12/13/20 18:26 Last Admin: 12/13/20 18:25 Dose: 100 ml Documented by: Ondansetron HCl (Ondansetron 4 Mg/2 Ml Sdv) 4 mg IVPUSH ONETIME ONE Stop: 12/13/20 17:37 Last Admin: 12/13/20 17:49 Dose: 4 mg Documented by: Ondansetron HCl (Ondansetron 4 Mg/2 Ml Sdv) 4 mg IVPUSH ONETIME ONE Stop: 12/13/20 19:36 Last Admin: 12/13/20 19:38 Dose: 4 mg Documented by: Ondansetron HCl (Ondansetron 4 Mg/2 Ml Sdv) Confirm Administered Dose 4 mg .ROUTE .STK-MED ONE Stop: 12/13/20 19:36 Last Admin: 12/13/20 19:46 Dose: Not Given Documented by: - Exam General: Reports: Alert, Oriented HEENT: Reports: Pupils Equal Neck: Reports: Supple. Denies: JVD Lungs: Reports: Clear to Auscultation, Normal Respiratory Effort Cardiovascular: Reports: Regular Rate, Regular Rhythm GI/Abdominal Exam: Normal Bowel Sounds, Soft, Non-Tender Back Exam: Reports: Normal Inspection. Denies: CVA Tenderness (L), CVA Tenderness (R) Extremities: Normal Inspection, No Pedal Edema. No: Lew's Sign, Leg Pain Skin: Reports: Warm, Dry, Intact Neurological: Reports: No New Focal Deficit, Normal Gait, Normal Speech, Normal Tone, Strength Equal Bilateral, Cranial Nerves Intact
== END 2020-12-15 13:42 | disposition home or self-care (01) ==
LOC: MW.ED 16:09 → MW.MS 21:31
PROVIDERS: ADMIT Student in an Organized Health Care Education/Training Program; ATTEND Student in an Organized Health Care Education/Training Program
DX: A41.9 Sepsis, unspecified organism (principal); N39.0 Urinary tract infection, site not specified; R42 Dizziness and giddiness; R29.810 Facial weakness; E03.9 Hypothyroidism, unspecified; I10 Essential (primary) hypertension; H02.402 Unspecified ptosis of left eyelid; Z79.890 Hormone replacement therapy; Z79.899 Other long term (current) drug therapy; Z20.822 Contact with and (suspected) exposure to COVID-19
CPT/HCPCS: 36415; 70450; 70496; 70498; 71045; 80048; 80053; 81001; 82947; 83605; 83690; 83735; 84100; 84443; 84484; 85025; 85610; 87040; 87086; 87088; 87186; 93005; 96365; 96375; 96376; 97161; 99285; A9270; C9113; J0696; J1644; J2405; J3475; J7030; J7120; Q9967; U0002; 96366; 96372; G0378

== ENCOUNTER 2022-03-23 12:55 | Emergency (ER) | payer MEDICARE, OTHER ==
[2022-03-23] MEDS ORDERED: Sodium Chloride 0.9% 2.5 ML Syringe FLUSH PRN (13:12)
[2022-03-23] MEDS ORDERED: Sodium Chloride 0.9% 10 ML Syringe FLUSH PRN (13:12)
[2022-03-23] MEDS ORDERED: Sodium Chloride 0.9% 1,000 ML IV ONE (13:13)
[2022-03-23 14:31] LABS: CARBON DIOXIDE,CO2 30.2 mmol/L (21.0-32.0); POTASSIUM,K 3.8 mmol/L (3.5-5.1)
[2022-03-23] MEDS ORDERED: Ketorolac 30 MG/ML SDV IVPUSH ONE (15:10)
== END 2022-03-23 17:01 | disposition home or self-care (01) ==
LOC: MW.ED 12:55
DX: I10 Essential (primary) hypertension (principal); E03.9 Hypothyroidism, unspecified; Z88.5 Allergy status to narcotic agent; Z88.2 Allergy status to sulfonamides; Z79.899 Other long term (current) drug therapy
CPT/HCPCS: 36415; 70450; 71045; 80053; 81001; 83735; 84484; 85025; 93005; 96361; 96374; 99284; J1885; J3490; J7030